=== PATIENT | female | born 1945 | race Caucasian/White ===

== ENCOUNTER 2019-07-26 11:30 | Inpatient (IN) | payer MEDICARE ==
[~2019-07-26] VITALS: Ht 162.6 cm; Wt 58.0 kg
[2019-07-26] MEDS ORDERED: CALCIUM CARBONATE 500 MG (TUMS) TAB.CHEW PO PRN (12:00)
[2019-07-26] MEDS ORDERED: ALPRAZolam 0.25 MG (XANAX) TAB PO PRN (12:00)
[2019-07-26] MEDS ORDERED: guaiFENesin/CODEINE (ROBITUSSIN AC) 10ML UDC PO PRN (12:00)
[2019-07-26] MEDS ORDERED: BISACODYL 10 MG SUPP (DULCOLAX) PR PRN (12:00)
[2019-07-26] MEDS ORDERED: LOPERAMIDE 2 MG (IMODIUM) TABLET PO PRN (12:00)
[2019-07-26] MEDS ORDERED: ONDANSETRON 4 MG (ZOFRAN) ORAL DISSOLVE TAB PO PRN (12:00)
[2019-07-26] MEDS ORDERED: diphenhydrAMINE 25 MG TAB (BENADRYL) PO PRN (12:00)
[2019-07-26] MEDS ORDERED: DOCUSATE SODIUM 100 MG (COLACE) CAP PO PRN (12:00)
[2019-07-26] MEDS ORDERED: FLEET ENEMA ADULT 1 EA BTL PR PRN (12:00)
[2019-07-26] MEDS ORDERED: oxyCODONE ER 10 MG (OxyCONTIN CR) TAB PO ONE (12:00)
[2019-07-26] MEDS ORDERED: LACTULOSE SYRUP 10GM/15ML (ENULOSE) 30ML UDC PO PRN (12:00)
--- NOTE | 2019-07-26 12:50 | NUR ---
LUIS LUEVANO admitted to room 228-1, with an admitting diagnosis of s/p left knee replacement and DVT of the left leg, on 07/26/19 from [facility] via Private vehicle, accompanied by .LUIS LUEVANO introduced to surroundings, call light, bed controls, phone, TV, temperature control, lights, meal times, smoking policy, visitor policy, side rail policy, bathrooms and showers. Patient Rights given to patient in the handbook. LUIS LUEVANO verbalizes understanding that [facility] is not responsible for the loss or damage to any personal effects or valuables that are kept in the patients possession during their hospitalization. The Patient's Care Plans were discussed with the patient as well as Discharge Planning. LUIS LUEVANO verbalizes understanding of Interdisciplinary Patient Education. Patient and/or family were informed about the Rapid Response Team and its purpose.
[2019-07-26 13:31] VITALS: BP 152/78
[2019-07-26] MEDS ORDERED: ATOR20TA66 PO (13:56)
[2019-07-26] MEDS ORDERED: LOSA100T57 PO (13:56)
[2019-07-26] MEDS ORDERED: SENN-145 PO (13:56)
[2019-07-26] MEDS ORDERED: APIX5TAB PO (13:56)
[2019-07-26] MEDS ORDERED: OXC5T PO (13:56)
[2019-07-26] MEDS ORDERED: ASCO-262 PO (13:57)
[2019-07-26] MEDS ORDERED: oxyCODONE ER 10 MG (OxyCONTIN CR) TAB PO NR (14:00)
[2019-07-26] MEDS ORDERED: METO-387 PO (14:12)
[2019-07-26] MEDS: IRON SUCROSE 200 MG/10 ML (VENOFER) VIAL IV SCH (14:12)
--- NOTE | 2019-07-26 14:12 | NUR ---
This RN received report from AMY Gaitan at [facility] that patient received her IV Venofer dose today as well as a pain pill at 1215 before she left [facility] to come to [facility].
--- NOTE | 2019-07-26 14:14 | NUR ---
UPDATED MED REC WITH DISCHARGE ORDERS FROM [facility]. NOTE THE FOLLOWING CHANGES WERE MADE WHEN THE PATIENT DISCHARGED FROM [facility]: START TAKING: ELIQUIS 5MG BID OXYCODONE IR 5MG 2 TABS Q4H PRN SENNA S 2 BID NOTE [facility] HAD DOCUMENTED TO CONTINUE METOPROLOL TARTRATE 50MG DAILY HOWEVER PATIENTS HOME MED IS FOR METOPROLOL SUCCINATE 25MG DAILY, ACCORDING TO [facility] IT WAS LAST FILLED #90 04-19-19. I PUT THE MOST RECENTLY FILLED SUCCINATE 25MG DAILY ON THE MED REC. OTC MED REPORTED VITAMIN C 500MG DAILY ADDITIONALLY [facility] FILLED PERCOCET 10-325MG Q6H PRN #30 07-18-19 - THIS IS NOT ADDRESSED ONT HE DISCHARGE FROM [facility] BUT PATIENT STATES THEY DON'T WANT HER TAKING THE TYLENOL AND PLAIN OXYCODONE WAS ORDERED NEW AT DISCHARGE. I WILL ADD THE PERCOCET BACK TO THE MED REC AT A LATER DATE AND REMOVE THE 3 NEW MEDICATIONS ORDERED AT DISCHARGE FROM [facility] FOR PROPER DISCHARGE TO HOME ORDERS. Addendum: 07/26/19 at 1531 by FRANCINE BHATTI CPhT I REMOVED THE THREE NEW MEDICATIONS ORDERED AT DISCHARGE FROM [facility] AND ADDED THE PERCOCET 10-325MG #30 FILLED 07-18-19 TO THE MED REC AT THIS TIME FOR PROPER DISCHARGE TO HOME ORDERS.
--- NOTE | 2019-07-26 14:25 | ST Cognitive Linguistic Eval ---
Speech Evaluation-General Medical Diagnosis Knee surgery Onset Date: Jul 18, 2019 Therapy Diagnosis Therapy Diagnosis: Cognitive-communication Referral Referring Physician: Dr. Elizabeth Medical History Reviewed History: Yes Social History Home: Single Level Current Living Status: Spouse Speech PLF-Current Status Prior Level of Function Patient lived at home with her and was independent with her daily needs. Subjective Patient was pleasant and cooperative with the cognitive assessment. Language Eval: Auditory Comprehends Simple Yes/No Ques: Functional Indent/Objects Multiple Gates: Functional Ident/Pics in Multiple Gates: Functional Follows 1-Step Commands: Functional Follows Complex Directions: Functional Follows General Conversations: Functional Language Eval: Verbal Language Completes Spontaneous Greeting: Functional Produces Auto, Serial Info: Functional Imitates Simple Words/Phrases: Functional Word Finding: Functional Requests Basic Needs: Functional States Basic Personal Info: Functional Expresses Complex Ideas: Functional Objective Cognitive Domain Attention: WNL Memory: WNL Problem Solving: Functional Executive Functions: WNL Visuospatial Skills: WNL Composite Severity Rating: WNL Clock Drawing Severity Rating: WNL Objective Formal/Standardized Tests [facility] Mental Status ([facility]) Results /, within normal range of function. Oral Motor/Speech Production Within Normal Limits Impression Patient is a pleasant 73 year old female who was admitted to the ARU s/p knee surgery and blood clot. The patient was given the SLUMS at bedside with results obtained of . Patient is within normal range of function for cognition. Patient does not require further ST services at this time. Speech Patient Assess Expression of Ideas/Wants: Expression (4) Understanding Verbal Content: Understands (4) Brief Interview-Mental Status: Yes Repetition of Three Words: Three (3) Temporal Orientation: Year: Correct (3) Temporal Orientation: Month: Accurate within 5 days(2) Temporal Orientation: Day: Correct (1) Recall : Wear to say "Sock": Yes, no cue required (2) Recall : Color: Yes, no cue required (2) Recall : Bed: Yes, no cue required (2) Memory/Recall Ability: Current season, Location of own room, That he or she is in a hsp/hsp unit Speech-Plan Patient/Family Goals Patient/Family Goals: Patient plans on returning to her home with her upon discharge. Treatment Plan Speech Therapy Treatment Plan: Discontinue ST Patient does not require further ST services. Treatment Duration: Jul 26, 2019 Frequency: 1 time per week Estimated Hrs Per Day: .25 hour per day Rehab Potential: Good Barriers to Learning: None identified Pt/Family Agrees to Plan: Yes Safety Risks/Education Teaching Recipient: Patient Teaching Methods: Discussion Response to Teaching: Verbalize Understanding Education Topics Provided: Safety within her room and communication of wants/needs. Time Speech Therapy Time In: 14:00 Speech Therapy Time Out: 14:15 Total Billed Time: 15 Billed Treatment Time 1, RICCINDJOSELYN Figueredo Jul 26, 2019 14:25 POS
--- NOTE | 2019-07-26 14:49 | Physical Therapy Evaluation ---
PT Evaluation-General Medical Diagnosis Admission Date Jul 26, 2019 at 12:50 Medical Diagnosis: left TKR Onset Date: Jul 18, 2019 Therapy Diagnosis Therapy Diagnosis: debility/weakness Precautions Precautions/Isolations: Standard Precautions Weight Bear Status Right Lower Extremity: Right Weight Bearing/Tolerated Left Lower Extremity: Left Weight Bearing/Tolerated Referral Physician: Glenn Reason for Referral: Evaluation/Treatment Medical History Pertinent Medical History: HTN Current History s/p elective left TKR (s/p DVT) Reviewed History: Yes Social History Home: Single Level Current Living Status: Spouse Entry Into Home: Stairs With Railing PT Steps Into Home: 3 Prior Prior Level of Function SCALE: Activities may be completed with or without assistive devices. 8-Geigrmslpg-zdnqjnf completes the activity by him/herself with no assistance from a helper. 5-Set-up or Clean-up Assistance-helper sets up or cleans up; patient completes activity. [place] assists only prior to or following the activity. 4-Supervision or Touching Assistance-helper provides verbal cues and/or touching/steadying and/or contact guard assistance as patient completes activity. Assistance may be provided throughout the activity or intermittently. 3-Partial/Moderate Assistance-helper does LESS THAN HALF the effort. [place] lifts, holds or supports trunk or limbs, but provides less than half the effort. 2-Substantial/Maximal Assistance-helper does MORE THAN HALF the effort. [place] lifts or holds trunk or limbs and provides more than half the effort. 2-Buxnophtt-qmohcn does ALL the effort. Patient does none of the effort to complete the activity. Or, the assistance of 2 or more helpers is required for the patient to complete the activity. If activity was not attempted, code reason: 7-Patient Refused. 9-Not Applicable-not attempted and the patient did not perform the activity before the current illness, exacerbation or injury. 10-Not Attempted due to Environmental Limitations-(lack of equipment, weather restraints, etc.). 88-Not Attempted due to Medical Conditions or Safety Concerns. Bed Mobility: 6 Transfers (B,C,W/C): 6 Gait: 6 Stairs: 6 Indoor Mobility (Ambulation): Independent Stairs: Independent Prior Devices Use: None PT Evaluation-Current Subjective Patient agrees to PT. Pain Numeric Pain Scale: 7 Location: Left Location Body Site: Knee Pain Description: Acute Objective Patient Orientation: Normal For Age Problem Solving: Good ROM/Strength ROM Lower Extremities left knee flexion 83 degrees/extension 4 degrees right knee flexion/extension WFL Strength Lower Extremities left LE 3/5 grossly right LE 5/5 grossly Integumentary/Posture Integumentary left knee incision Bowel Incontinence: No Bladder Incontinence: No Posture WFL Neuromuscular (Tone, Coordination, Reflexes) grossly intact Sensory Vision: Wears Glasses Hearing: Functional Sensation Right Lower Extremit: Intact Sensation Left Lower Extremity: Intact Transfers Roll Left to Right (QC): 5 Sit to Lying (QC): 5 Lying to Sitting/Side of Bed(Q: 5 Sit to Stand (QC): 4 Chair/Odf-xg-Hpvpo Xfer(QC): 4 Car Transfer (QC): 4 Gait Does the Patient Walk?: Yes Mode of Locomotion: Walk Anticipated Mode of Locomotion: Walk Distance: 3=150 ft Walk 10 feet (QC): 4 Walk 50 ft with 2 Turns(QC): 4 Walk 150 ft (QC): 4 Walking 10ft/uneven surface-QC: 4 Distance: 50' x 2/150' x 1 Gait Assistive Device: FWW Comments/Gait Description slow, antalgic, step to gait pattern with 50% WB per patient report Balance Sitting Static: Normal Sitting Dynamic: Normal Standing Static: Normal Standing Dynamic: Normal Picking up an Object (QC): 3 Treatment AAROM left LE 15 reps each SLR, AP, QS, HS Assessment/Needs 73 y.o. female, will benefit from skilled PT to address functional strength and mobility to improve current LOF to safely return to home at maximum LOF. Rehab Potential: Good PT Humanities Professor Goals Snf Goals PT Humanities Professor Goals Time Frame: Aug 10, 2019 Sit to Lying (QC): 6 Lying-Sitting on Side/Bed(QC): 6 Sit to Stand (QC): 6 Roll Left to Right (QC): 6 Chair/Uuf-pb-Qrggg Xfer(QC): 6 Car Transfer (QC): 6 Does the Patient Walk: Yes Distance: 200' Walk 10 feet (QC): 6 Walk 10ft-Uneven Surface(QC): 6 Walk 50ft with 2 Turns (QC): 6 Walk 150 ft (QC): 6 Gait Assistive Device: FWW # of Steps: 12 1 Step (curb) (QC): 6 4 Steps (QC): 6 12 Steps (QC): 6 Picking up an Object (QC): 6 PT Plan Problem List Problem List: Activity Tolerance, Balance, Gait, Transfer, Bed Mobility, ROM Treatment/Plan Treatment Plan: Continue Plan of Care Treatment Plan: Bed Mobility, Concurrent Therapy, Education, Functional Activity Abdoul, Functional Strength, Group Therapy, Gait, Safety, Therapeutic Exercise, Transfers Treatment Duration: Aug 10, 2019 Frequency: At least 5 of 7 days/Wk (IRF) Estimated Hrs Per Day: 1.5 hours per day Patient and/or Family Agrees t: Yes Time/GCodes Time In: 1255 Time Out: 1355 Total Billed Treatment Time: 60 Total Billed Treatment 1 visit EVModC 25 min EX 20 min GT 15 min ALEXIA BOJORQUEZ PT Jul 26, 2019 14:49 POS
--- NOTE | 2019-07-26 15:25 | Occupational Therapy Eval ---
OT Evaluation-General/PLF Medical Diagnosis Admission Date Jul 26, 2019 at 12:50 Medical Diagnosis: left TKR Onset Date: Jul 18, 2019 Therapy Diagnosis Therapy Diagnosis: decreased self care skills Precautions Precautions/Isolations: Standard Precautions Referral Physician: Glenn Medical History Pertinent Medical History: HTN, OA Additional Medical History hyperlipidemia Current History Pt s/p left TKA. DVT left LE. Reviewed History: Yes Social History Home: Single Level Current Living Status: Spouse Entry Into Home: Stairs With Railing Steps Into Home: 3 ADL-Prior Level of Function SCALE: Activities may be completed with or without assistive devices. 2-Ihcgdlbvjr-yoousok completes the activity by him/herself with no assistance from a helper. 5-Set-up or Clean-up Assistance-helper sets up or cleans up; patient completes activity. [place] assists only prior to or following the activity. 4-Supervision or Touching Assistance-helper provides verbal cues and/or touching/steadying and/or contact guard assistance as patient completes activity. Assistance may be provided throughout the activity or intermittently. 3-Partial/Moderate Assistance-helper does LESS THAN HALF the effort. [place] lifts, holds or supports trunk or limbs, but provides less than half the effort. 2-Substantial/Maximal Assistance-helper does MORE THAN HALF the effort. [place] lifts or holds trunk or limbs and provides more than half the effort. 5-Yyayxwyqu-tjrtvr does ALL the effort. Patient does none of the effort to complete the activity. Or, the assistance of 2 or more helpers is required for the patient to complete the activity. If activity was not attempted, code reason: 7-Patient Refused. 9-Not Applicable-not attempted and the patient did not perform the activity before the current illness, exacerbation or injury. 10-Not Attempted due to Environmental Limitations-(lack of equipment, weather restraints, etc.). 88-Not Attempted due to Medical Conditions or Safety Concerns. ADL PLOF Comments Pt reports being independent prior to surgery. Self Care: Independent Functional Cognition: Independent DME/Equipment: Bath Chair, Tub/Shower, Toilet/[address] Self: Yes OT Current Status Subjective Pt agreeable to therapy. Reports mild pain in left LE, but states "it's better than it was." Does not rate pain. Mental Status/Objective Patient Orientation: Person, Place, Situation Current Glasses/Contacts: Yes Hearing Aids: No Dentures/Partials: No Hand Dominance: Right Upper Extremity ROM WFL Upper Extremity Coordination Intact Upper Extremity Strength Grossly 4/5 ADL-Treatment ADL-Current Pt supine to sit with SBA. Don footwear on right with SBA, assist for left. Sit to stand with supervision. Gait to restroom with FWW. Pt has decreased weight bearing on left LE. Transfer to [facility] over toilet with CGA. Pt able to complete toileting hygiene with SBA. CGA for balance during clothing management. Pt transferred to shower with CGA for balance, cues for safety. Seated bathing completed using hand held shower. Min assist overall for bathing. Don pullover shirt with set up. Pt able to thread bilateral LE into underwear and pants. CGA for balance during pant hike. Assist to don right [place] hose. Pt brushed hair with set up, but declined to complete oral care at this time. Pt requests to return to bed. Sit to supine with SBA. Pt resting in bed with needs met after session. Eating (QC): 6 (per pt report) Oral Hygiene (QC): 7 (pt declined to complete at this time) Shower/Bathe Self (QC): 4 Upper Body Dressing (QC): 5 Lower Body Dressing (QC): 3 On/Off Footwear (QC): 3 Toileting Hygiene (QC): 4 Toilet Transfer (QC): 4 Education OT Patient Education: Rehab process Teaching Recipient: Patient Teaching Methods: Discussion Response to Teaching: Verbalize Understanding OT Short Term Goals Short Term Goals 1=Demonstrate adherence to instructed precautions during ADL tasks. 2=Patient will verbalize/demonstrate understanding of assistive devices/modifications for ADL. 3=Patient will improve strength/tolerance for activity to enable patient to perform ADL's. OT Mcfp Goals Lean Facilitator Goals Time Frame: Aug 09, 2019 Eating (QC): 6 Oral Hygiene (QC): 6 Shower/Bathe Self (QC): 6 Upper Body Dressing (QC): 6 Lower Body Dressing (QC): 6 On/Off Footwear (QC): 6 Toileting Hygiene (QC): 6 Toilet/Commode Transfer (QC): 6 Additional Goals: 1-Demonstrate ADL Tasks, 2-Verbalize Understanding, 3- ImproveStrength/Abdoul 1=Demonstrate adherence to instructed precautions during ADL tasks. 2=Patient will verbalize/demonstrate understanding of assistive devices/modifications for ADL. 3=Patient will improve strength/tolerance for activity to enable patient to perform ADL's. Goals established to promote increased functional independence and allow safe discharge. OT Education/Plan Problem List/Assessment Assessment: Decreased Activ Tolerance, Decreased UE Strength, Dependent Transfers, Impaired I ADL's, Impaired Self-Care Skills Pt demonstrates decreased mobility, ADL functioning, strength, and activity tolerance. Pt to benefit from skilled OT intervention for ADL training, transfers, strengthening, and safety education to increase level of independence and allow safe discharge home. Discharge Recommendations Plan/Recommendations: Continue POC Treatment Plan/Plan of Care Treatment,Training & Education: Yes Patient would benefit from OT for education, treatment and training to promote independence in ADL's, mobility, safety and/or upper extremity function for ADL's. Plan of Care: ADL Retraining, Functional Mobility, Group Exercise/Act as Ind, UE Funct Exercise/Act Treatment Duration: Aug 09, 2019 Frequency: Modified Program (IRF) (25/03) Estimated Hrs Per Day: 1.5 hours per day Rehab Potential: Good Time/GCodes Start Time: 14:15 Stop Time: 15:15 Total Time Billed (hr/min): 60 Billed Treatment Time 1 visit, EVM(15minutes), ADLx3(45minutes) SID CACERES OT Jul 26, 2019 15:25 POS
[2019-07-26] MEDS ORDERED: OXYC1TAB12 PO (15:30)
[2019-07-26 16:00] VITALS: BP 114/71
--- NOTE | 2019-07-26 16:37 | Progress Note ---
Progress Note CC: Slow recovery and failure DC home from Left TKA surgery by Dr. Pérez 8 days ago POD # 8 HPI: This is a 73yoWF who I saw in consultation at [facility] following and uncomplicated left knee replacement and she was a pt of Dr. Teresa and she had a history of HTN and HLP, otherwise healthy that had a long hospital course following the knee replacement. She did finally have resolution of the post op constipation narcotic bowel. Her labs remained stable although slightly anemic at 9.5 Hgb who presented in my office with left leg pain after Dr. Pérez had staff call me due to continued left lower extremity pain, ultrasound was obtained showing venous thromboembolism at the intersection about to turn into the DVT so she was given a dose of Lovenox at [facility] and transported over to my office and I updated her on the plan and to place in observation and she chose to go to [facility] and did mention inpatient rehab of which originally she was not interested in but considering her overall failure since she was DC home she will be admitted to inpatient rehab for structured PT slower pace of 157 and be able to get back on track to completely recover from this knee replacement. She appears to have some difficulty coping and it appears that she does have some chronic depression that is not currently being treated and her bowels are moving after laxatives given after she hadn't had a BM since she left the hospital and wasn't eating or drinking so I did give IV fluids for hydration. I did give IV iron infusion because her Iron level was 30, Hgb at 9. The incision looks good, no evidence of erythema or drainage. KINJAL SWEENEY DO Jul 26, 2019 16:37 POS
[2019-07-26] MEDS: IBUPROFEN TABLET 200 MG TAB PO SCH (18:03)
[2019-07-26] MEDS ORDERED: DOCUSATE SODIUM 100 MG (COLACE) CAP PO SCH (21:00)
[2019-07-26] MEDS ORDERED: SENNA W/DOCUSATE (SENOKOT S) TABLET PO SCH (21:00)
[2019-07-26] MEDS: APIXABAN 5 MG (ELIQUIS) TABLET PO SCH (21:01)
[2019-07-26] MEDS: oxyCODONE ER 10 MG (OxyCONTIN CR) TAB PO SCH (21:01)
[2019-07-26] MEDS: POLYETHYLENE GLYCOL 17 GM (MIRALAX) PACK PO SCH (21:05)
[2019-07-26] MEDS: SENNA W/DOCUSATE (SENOKOT S) TABLET PO SCH (21:05)
[2019-07-27 05:34] VITALS: BP 154/84
[2019-07-27] MEDS: IBUPROFEN TABLET 200 MG TAB PO SCH ×3 (06:32→17:03)
[2019-07-27] MEDS: ASCORBIC ACID (VIT C) 500 MG TABLET PO SCH (06:32)
[2019-07-27 06:38] LABS: BASOPHILS # (AUTO) 0.1 10^3/uL (0.0-0.1); BASOPHILS % (AUTO) 1 % (0-10); EOSINOPHILS # (AUTO) 0.4 10^3/uL (0.0-0.3); EOSINOPHILS % (AUTO) 5 % (0-10); HEMATOCRIT 31 % (35-52); HEMOGLOBIN 9.6 G/DL (11.5-16.0); LYMPHOCYTES # (AUTO) 1.7 X 10^3 (1.0-4.0); LYMPHOCYTES % (AUTO) 22 % (12-44); MEAN CORPUSCULAR HEMOGLOBIN 30 PG (25-34); MEAN CORPUSCULAR HGB CONC 32 G/DL (32-36); MEAN CORPUSCULAR VOLUME 95 FL (80-99); MEAN PLATELET VOLUME 9.8 FL (7.4-10.4); MONOCYTES # (AUTO) 0.7 X 10^3 (0.0-1.0); MONOCYTES % (AUTO) 10 % (0-12); NEUTROPHILS # (AUTO) 4.8 X 10^3 (1.8-7.8); NEUTROPHILS % (AUTO) 62 % (42-75); PLATELET COUNT 514 10^3/uL (130-400); RED CELL DISTRIBUTION WIDTH 12.1 % (10.0-14.5); WHITE BLOOD COUNT 7.7 10^3/uL (4.3-11.0)
[2019-07-27 07:04] LABS: ALANINE AMINOTRANSFERASE 54 U/L (0-55); ALBUMIN 3.5 GM/DL (3.2-4.5); ALKALINE PHOSPHATASE 113 U/L (40-136); BILIRUBIN,TOTAL 0.7 MG/DL (0.1-1.0); BUN/CREATININE RATIO 18; CALCIUM 9.6 MG/DL (8.5-10.1); CARBON DIOXIDE 25 MMOL/L (21-32); CHLORIDE 103 MMOL/L (98-107); CREATININE SERUM 0.74 MG/DL (0.60-1.30); GFR ESTIMATED > 60; GLUCOSE 90 MG/DL (70-105); POTASSIUM 4.1 MMOL/L (3.6-5.0); SODIUM 139 MMOL/L (135-145); TOTAL PROTEIN 6.8 GM/DL (6.4-8.2)
[2019-07-27] MEDS: APIXABAN 5 MG (ELIQUIS) TABLET PO SCH ×2 (08:03→21:10)
[2019-07-27] MEDS: LOSARTAN 100 MG (COZAAR) TABLET PO SCH (08:03)
[2019-07-27] MEDS: oxyCODONE ER 10 MG (OxyCONTIN CR) TAB PO SCH ×2 (08:03→21:10)
[2019-07-27] MEDS: SENNA W/DOCUSATE (SENOKOT S) TABLET PO SCH ×2 (08:04→21:12)
[2019-07-27 08:05] VITALS: BP 120/76
[2019-07-27] MEDS: POLYETHYLENE GLYCOL 17 GM (MIRALAX) PACK PO SCH ×2 (08:05→21:05)
--- NOTE | 2019-07-27 10:08 | Occupational Ther Daily Note ---
OT Current Status-Daily Note Subjective Pt seen in bed, agreeable to OT tx session stating she requires bathroom. Pt states "some" pain in L knee, but increases during stance/ WB. Mental Status/Objective Patient Orientation: Normal For Age ADL-Treatment Therapy Code Descriptions/Definitions Functional [facility] Measure: 0=Not Assessed/NA 4=Minimal Assistance 1=Total Assistance 5=Supervision or Setup 2=Maximal Assistance 6=Modified [facility] 3=Moderate Assistance 7=Complete IndependenceSCALE: Activities may be completed with or without assistive devices. 7-Hrpfxqsgij-dfsqlzm completes the activity by him/herself with no assistance from a helper. 5-Set-up or Clean-up Assistance-helper sets up or cleans up; patient completes activity. [place] assists only prior to or following the activity. 4-Supervision or Touching Assistance-helper provides verbal cues and/or touching/steadying and/or contact guard assistance as patient completes activity. Assistance may be provided throughout the activity or intermittently. 3-Partial/Moderate Assistance-helper does LESS THAN HALF the effort. [place] lifts, holds or supports trunk or limbs, but provides less than half the effort. 2-Substantial/Maximal Assistance-helper does MORE THAN HALF the effort. [place] lifts or holds trunk or limbs and provides more than half the effort. 2-Vibijfvxw-mxxyxj does ALL the effort. Patient does none of the effort to complete the activity. Or, the assistance of 2 or more helpers is required for the patient to complete the activity. If activity was not attempted, code reason: 7-Patient Refused. 9-Not Applicable-not attempted and the patient did not perform the activity before the current illness, exacerbation or injury. 10-Not Attempted due to Environmental Limitations-(lack of equipment, weather restraints, etc.). 88-Not Attempted due to Medical Conditions or Safety Concerns. Oral Hygiene (QC): 4 (CGA in stance. Pt leans on counter for support. ) Toileting Hygiene (QC): 4 (Min A due to pt's balance fair- requires steadying assist) Toilet Transfer (QC): 4 (CGA assist due to balance ) on/off footwear 4- pt completes without AE with good dynamic sitting balance edg e of chair. Pt's L LE pitting edema near ankle, requires shoe horn with min cues for donning. Other Treatment Pt completes bed mob with SUP. Sit to stand to FWW with CGA. Pt completes ADLs in room. Pt's family present mid-end of session. Pt completes sit to stand to FWW with CGA, completes functional mobility with CGA, kitchen tasks with CGA and cues for safe stance while gathering items from fridge/ microwave. Pt transfers to chair in ARU [facility], completes sock/ shoe donning with min cues for shoe horn use; pt left in [facility] with family members with PT to follow, all needs met. Education OT Patient Education: Correct positioning, Modified ADL techniques, Purpose of tx/functional activities, Safety issues, Use of adapted equipment Teaching Recipient: Patient Teaching Methods: Demonstration, Discussion Response to Teaching: Verbalize Understanding, Return Demonstration OT Short Term Goals Short Term Goals 1=Demonstrate adherence to instructed precautions during ADL tasks. 2=Patient will verbalize/demonstrate understanding of assistive devices/modifications for ADL. 3=Patient will improve strength/tolerance for activity to enable patient to perform ADL's. OT Credit Compliance Officer Goals [facility] Goals Time Frame: Aug 09, 2019 Eating (QC): 6 (met) Oral Hygiene (QC): 6 Shower/Bathe Self (QC): 6 Upper Body Dressing (QC): 6 Lower Body Dressing (QC): 6 On/Off Footwear (QC): 6 Toileting Hygiene (QC): 6 Toilet/Commode Transfer (QC): 6 Additional Goals: 1-Demonstrate ADL Tasks, 2-Verbalize Understanding, 3-ImproveStrength/Abdoul 1=Demonstrate adherence to instructed precautions during ADL tasks. 2=Patient will verbalize/demonstrate understanding of assistive devices/modifications for ADL. 3=Patient will improve strength/tolerance for activity to enable patient to per form ADL's. OT Education/Plan Problem List/Assessment Assessment: Decreased Activ Tolerance, Decreased UE Strength, Impaired Funct Balance, Impaired I ADL's, Impaired Self-Care Skills Pt demonstrates decreased mobility, ADL functioning, strength, and activity tolerance. Pt to benefit from skilled OT intervention for ADL training, transf ers, strengthening, and safety education to increase level of independence and allow safe discharge home. Discharge Recommendations Plan/Recommendations: Continue POC Treatment Plan/Plan of Care Treatment,Training & Education: Yes Patient would benefit from OT for education, treatment and training to promote independence in ADL's, mobility, safety and/or upper extremity function for ADL's. Plan of Care: ADL Retraining, Functional Mobility, Group Exercise/Act as Ind, UE Funct Exercise/Act Treatment Duration: Aug 09, 2019 Frequency: Modified Program (IRF) (25/03) Estimated Hrs Per Day: 1.5 hours per day Rehab Potential: Good Time/GCodes Start Time: 09:10 Stop Time: 09:40 Total Time Billed (hr/min): 30 Billed Treatment Time 1, ADL (20), FA (10)= 30 VIOLETA MONTIEL OTR Jul 27, 2019 10:08 POS
--- NOTE | 2019-07-27 11:49 | Physical Therapy Daily Note ---
PT Daily Note-Current Subjective Patient reports she is feeling much better today and is putting 75% of her weight through her left LE. Agrees to PT. Pain Numeric Pain Scale: 7 Location: Left Location Body Site: Knee Pain Description: Acute Mental Status Patient Orientation: Normal For Age Transfers SCALE: Activities may be completed with or without assistive devices. 5-Ovmrubfyno-ntteynz completes the activity by him/herself with no assistance from a helper. 5-Set-up or Clean-up Assistance-helper sets up or cleans up; patient completes activity. [place] assists only prior to or following the activity. 4-Supervision or Touching Assistance-helper provides verbal cues and/or touching/steadying and/or contact guard assistance as patient completes activity. Assistance may be provided throughout the activity or intermittently. 3-Partial/Moderate Assistance-helper does LESS THAN HALF the effort. [place] lifts, holds or supports trunk or limbs, but provides less than half the effort. 2-Substantial/Maximal Assistance-helper does MORE THAN HALF the effort. [place] lifts or holds trunk or limbs and provides more than half the effort. 2-Ztpjmdods-upbmro does ALL the effort. Patient does none of the effort to complete the activity. Or, the assistance of 2 or more helpers is required for the patient to complete the activity. If activity was not attempted, code reason: 7-Patient Refused. 9-Not Applicable-not attempted and the patient did not perform the activity before the current illness, exacerbation or injury. 10-Not Attempted due to Environmental Limitations-(lack of equipment, weather restraints, etc.). 88-Not Attempted due to Medical Conditions or Safety Concerns. Roll Left to Right (QC): 5 Sit to Lying (QC): 5 Sit to Stand (QC): 5 Chair/Kze-ev-Phavj Xfer(QC): 5 Bed to/from Chair: 5 Weight Bearing Right Lower Extremity: Right Weight Bearing/Tolerated Left Lower Extremity: Left Weight Bearing/Tolerated Gait Training Does the Patient Walk?: Yes Distance: 200' x 2 Walk 10 feet (QC): 5 Walk 50 ft with 2 Turns(QC): 5 Walk 150 ft (QC): 5 Gait Assistive Device: FWW slow, antalgic, step to gait sequence/education and demonstration of reciprocal pattern gait sequence initiated with patient attempting to demonstrate/patient gait sequence is improving slowly Exercises Supine Ex: Ankle pumps, Quad Set, Heel Slides, Straight leg raise Supine Reps: 12 Seated Therapy Exercises: Ankle pumps, Long arc quads Seated Reps: 15 NuStep Minutes: 15 NuStep Workload: 4 (to increase ROM left LE) Assessment Patient is improving with treatment plan and is highly motivated with progress. PT to continue to increase activity as tolerated by patient. Patient does appear to continue to self limit due to pain/apprehension. PT Custodial Goals Risk Control Officer Goals PT Custodial Goals Time Frame: Aug 10, 2019 Sit to Lying (QC): 6 Lying-Sitting on Side/Bed(QC): 6 Sit to Stand (QC): 6 Roll Left to Right (QC): 6 Chair/Sap-ug-Iuwgw Xfer(QC): 6 Car Transfer (QC): 6 Does the Patient Walk: Yes Distance: 200' Walk 10 feet (QC): 6 Walk 10ft-Uneven Surface(QC): 6 Walk 50ft with 2 Turns (QC): 6 Walk 150 ft (QC): 6 Gait Assistive Device: FWW # of Steps: 12 1 Step (curb) (QC): 6 4 Steps (QC): 6 12 Steps (QC): 6 Picking up an Object (QC): 6 PT Plan Treatment/Plan Treatment Plan: Continue Plan of Care Treatment Plan: Bed Mobility, Concurrent Therapy, Education, Functional Activity Abdoul, Functional Strength, Group Therapy, Gait, Safety, Therapeutic Exercise, Transfers Treatment Duration: Aug 10, 2019 Frequency: At least 5 of 7 days/Wk (IRF) Estimated Hrs Per Day: 1.5 hours per day Patient and/or Family Agrees t: Yes Time/GCodes Time In: 940 Time Out: 1010 Total Billed Treatment Time: 30 Total Billed Treatment 1 visit EX 20 min GT 10 min ALEXIA BOJORQUEZ PT Jul 27, 2019 11:49 POS
--- NOTE | 2019-07-27 12:02 | PM&R Post Admission Assessment ---
PM&R HP Date of Visit: Jul 27, 2019 Time of Visit: 10:45 History of Present Illness see bridge note Past Ftpcbjh-Xapuqv-Hjiiaq Hx Past Med/Social Hx: Reviewed Nursing Past Med/Soc Hx, Reviewed and Corrections made Patient Social History Marrital Status: Employed/Student: retired Alcohol Use: Occasionally Uses Alcohol Beverage of Choice: Beer Smoking Status: Never a Smoker Recent Foreign Travel: No Contact w/other who traveled: No Recent Hopitalizations: Yes ([facility] for L total knee and DVT) Recent Infectious Disease Expo: No Seasonal Allergies Seasonal Allergies: No Past Medical History Currently Using CPAP: No Currently Using BIPAP: No Cardiac: High Cholesterol, Hypertension : No Sexually Transmitted Disease: No HIV/AIDS: No Gastrointestinal: Chronic Constipation Musculoskeletal: Arthritis History of Blood Disorders: Yes (slight post op enemia-on venofer Q48H currently.) Adverse Reaction to Blood Patricio: No Family History FH: breast cancer in first degree relative 19 MOTHER FH: pancreatic cancer 19 FATHER Prior Level of Function Bed Mobility: 6 Transfers: 6 Gait: 6 Stairs: 6 Indoor Mobility (Ambulation): Independent Stairs: Independent Prior Devices Use: None Self Care: Independent Functional Cognition: Independent Drive Self: Yes Current Level of Fuctioning Roll Left to Right: 5 Sit to Lyin Lying to Sitting/Side of Bed: 5 Sit to Stand: 5 Chair/Kzu-qw-Jpcex Xfer: 5 Car Transfer: 4 Does the Patient Walk: Yes Mode of Locomotion: Walk Anticipated Mode of Locomotion: Walk Distance: 3=150 ft Walk 10 feet: 5 Walk 50 ft with 2 Turns: 5 Walk 150 ft: 5 Walking 10ft on uneven surface: 4 Gait Assistive Device: FWW Picking up an Object: 3 Eatin (per pt report) Oral Hygiene: 4 (CGA in stance. Pt leans on counter for support. ) Shower/Bathe Self: 4 Upper Body Dressin Lower Body Dressin On/Off Footwear: 3 Toileting Hygiene: 4 (Min A due to pt's balance fair- requires steadying assist) Toilet Transfer: 4 (CGA assist due to balance ) PM&R Allergy/Meds/Data Review Allergies Coded Allergies: No Known Drug Allergies (Unverified , 12/16/14) Home Medications Scheduled Ascorbate Calcium (Vitamin C), 500 MG PO DAILY, (Reported) Atorvastatin Calcium (Atorvastatin Calcium), 20 MG PO HS, (Reported) Losartan Potassium (Losartan Potassium), 100 MG PO DAILY, (Reported) Metoprolol Succinate (Metoprolol Succinate), 25 MG PO DAILY, (Reported) Scheduled PRN Oxycodone HCl/Acetaminophen (Percocet 10-325 mg Tablet), 1 TAB PO Q6H PRN for PAIN-MODERATE (5-7), (Reported) Current Medications Current Medications reviewed Laboratory Data Laboratory Tests 07/27/19 05:45: White Blood Count 7.7, Red Blood Count 3.20L, Hemoglobin 9.6L, Hematocrit 31L, Mean Corpuscular Volume 95, Mean Corpuscular Hemoglobin 30, Mean Corpuscular Hemoglobin Concent 32, Red Cell Distribution Width 12.1, Platelet Count 514H, Mean Platelet Volume 9.8, Neutrophils (%) (Auto) 62, Lymphocytes (%) (Auto) 22, Monocytes (%) (Auto) 10, Eosinophils (%) (Auto) 5, Basophils (%) (Auto) 1, Neutrophils # (Auto) 4.8, Lymphocytes # (Auto) 1.7, Monocytes # (Auto) 0.7, Eosinophils # (Auto) 0.4H, Basophils # (Auto) 0.1, Sodium Level 139, Potassium Level 4.1, Chloride Level 103, Carbon Dioxide Level 25, Anion Gap 11, Blood Urea Nitrogen 13, Creatinine 0.74, Estimat Glomerular Filtration Rate > 60, BUN/Crea tinine Ratio 18, Glucose Level 90, Calcium Level 9.6, Corrected Calcium 10.0, Total Bilirubin 0.7, Aspartate Amino Transf (AST/SGOT) 28, Alanine Aminotransferase (ALT/SGPT) 54, Alkaline Phosphatase 113, Total Protein 6.8, Albumin 3.5 Review of Systems Constitutional: see HPI, malaise, weakness EENTM: no symptoms reported Respiratory: no symptoms reported Cardiovascular: no symptoms reported Gastrointestinal: constipation Musculoskeletal: back pain, joint pain Psychiatric/Neurological: Depressed, Emotional Problems All Other Systems Reviewed Negative Unless Noted: Yes Physical Exam Physical Exam Vital Signs Vital Signs - First Documented 07/26/19 07/26/19 13:00 13:31 Temp 36.6 Pulse 111 Resp 18 B/P (MAP) 152/78 Pulse Ox 95 O2 Delivery Room Air Capillary Refill : Height, Weight, BMI Height: '" Weight: lbs. oz. kg; 22.88 BMI Method: General Appearance: No Apparent Distress, WD/WN, Anxious Eyes: Bilateral Eye Normal Inspection, Bilateral Eye PERRL HEENT: PERRL/EOMI, TMs Normal, Normal ENT Inspection, Pharynx Normal Neck: Full Range of Motion, Normal Inspection, Non Tender, Supple, Carotid Bruit Respiratory: Chest Non Tender, Lungs Clear, Normal Breath Sounds, No Accessory Muscle Use, No Respiratory Distress Cardiovascular: Regular Rate, Rhythm, No Edema, No Gallop, No JVD, No Murmur, Normal Peripheral Pulses Gastrointestinal: Normal Bowel Sounds, No Organomegaly, No Pulsatile Mass, Non Tender, Soft Back: Normal Inspection, No CVA Tenderness, No Vertebral Tenderness Extremity: Normal Capillary Refill, Normal Inspection, Normal Range of Motion (except left leg due to edema and recent knee replacement), Non Tender, No Calf Tenderness, No Pedal Edema Neurologic/Psychiatric: Alert, Oriented x3, No Motor/Sensory Deficits, Normal Mood/Affect Skin: Normal Color, Warm/Dry Lymphatic: No Adenopathy PM&R Medical Assessment & Plan REHAB/MEDICAL ASSESSMENT AND PLAN: REHAB IMPAIRMENT GROUP: Left knee replacement with acute left DVT complicating recovery ETIOLOGIC DIAGNOSIS: Left knee replacement now with DVT The comorbidities that impact the patients function and/or functional outcome by: [ ] REHAB PLAN: The patient is being admitted to our comprehensive inpatient rehabilitation facility and can tolerate the intensity of service consisting of at least: 180 minutes of therapy a day, 5 out of 7 days a week Rehab treatment will consist of: PT OT will focus on ambulation and increasing ROM Left knee and regaining confidence and ADL independence The patient/family has a good understanding of our discharge process and will benefit from an interdisciplinary inpatient rehabilitation program. The patient has potential to make improvement and is in need of at least two of the following multidisciplinary therapies including but not limited to physical, occupational, speech, and prosthetics and orthotics. Additionally the patient will need services from respiratory, nutritional services, wound care, psychology, etc. (Customize this to each patient). Given the patients complex condition and risk of further medical complications, rehabilitation services cannot be safely or effectively provided at a lower level of care such as a jail facility. BARRIERS TO DISCHARGE: Ability to ambulate and regain left leg function ESTIMATED LOS: 7 days DISPOSITION: Home with HH RELEVANT CHANGES SINCE PREADMISSION SCREENING: I have compared the patients medical and functional status at the time of the preadmission screening and there are: no changes PROGNOSIS: GOOD REHABILITATION GOALS: 1. PT OT will increase ambulation and regain independence after failing home All the above goals were reviewed with the patient and he/she is in agreement. By signing this document, I acknowledge that I have personally performed a full physical examination on this patient within 24 hours of admission to this inpatient rehabilitation facility and have determined the patient to be able to tolerate the above course of treatment at an intensive level for a reasonable period of time. I will be completing a detailed individualized Plan of Care for this patient by day #4 of the patients stay based upon the Preadmission Screen, the Post-Admission Evaluation, and the therapy evaluations. Admission Dx/Comorbidities: (1) Left leg DVT ICD Codes: I82.402 - Acute embolism and thrombosis of unspecified deep veins of left lower extremity (2) Hypertension ICD Codes: I10 - Essential (primary) hypertension (3) Postoperative anemia due to acute blood loss ICD Codes: D62 - Acute posthemorrhagic anemia (4) Iron deficiency ICD Codes: E61.1 - Iron deficiency (5) Hyperlipemia ICD Codes: E78.5 - Hyperlipidemia, unspecified (6) Status post left knee replacement ICD Codes: Z96.652 - Presence of left artificial knee joint KINJAL SWEENEY DO Jul 27, 2019 12:02 POS
--- NOTE | 2019-07-27 12:11 | Individualized Plan of Care ---
Individualized Plan of Care Rehab Nursing IPOC Order Admission Date Jul 26, 2019 at 12:50 Current Orders Orders Admission Order(Inpt,Obs,Sdc) (07/26/19 11:46) Vital Signs: Per Unit Policy ( 08,16,00 (07/26/19 11:46) Loader Technician-Inpt Rehab Con (07/26/19 11:46) Rehab Nursing Orders-Ipoc (07/26/19 11:46) Physical Therapy Rehab Orders (07/26/19 11:46) Occupational Therapy Rehab Ord (07/26/19 11:46) Speech Therapy Rehab Orders (07/26/19 11:46) Cbc With Automated Diff (07/27/19 06:00) Comprehensive Metabolic Panel (07/27/19 06:00) General/Regular (07/26/19 Dinner) Intake & Output 06,14,22 (07/26/19 11:46) Precautions (Aru) (07/26/19 11:46) Weekly Weight WEEK (07/26/19 11:46) Rehab-Intensity Of Therapy (07/26/19 11:46) Initiate Admission Nursing Pro .admission (07/26/19 11:46) Alprazolam Tablet (Xanax Tablet) (07/26/19 12:00) Calcium Carbonate Chew Tablet (Antacid C (07/26/19 12:00) Diphenhydramine Tablet (Benadryl Tablet) (07/26/19 12:00) Docusate Sodium Capsule (Colace Capsule) (07/26/19 21:00) Docusate Sodium Capsule (Colace Capsule) (07/26/19 12:00) Bisacodyl Suppository (Dulcolax Supposit (07/26/19 12:00) Lactulose Oral Solution (Enulose Oral So (07/26/19 12:00) Na Phos/Na Biphos Enema (Fleet Enema Buddy (07/26/19 12:00) Guaifenesin/Codeine Syrup (Robitussin Ac (07/26/19 12:00) Ibuprofen Tablet (Motrin Tablet) (07/26/19 17:00) Loperamide Tablet (Imodium Tablet) (07/26/19 12:00) Melatonin Tablet (Melatonin Tablet) (07/26/19 12:00) Polyethylene Glycol Powder Pkt (Miralax (07/26/19 21:00) Ondansetron Oral Dissolve Tab (Zofran (07/26/19 12:00) Senna S Tablet (Senokot S Tablet) (07/26/19 21:00) Apixaban Tablet (Eliquis Tablet) (07/26/19 21:00) Oxycodone Extended Release Tab (Oxyconti (07/26/19 12:00) Oxycodone Extended Release Tab (Oxyconti (07/26/19 21:00) Oxycodone Immediate Rel Tablet (Oxyir Ta (07/26/19 12:00) Code/Resuscitation (07/26/19 11:46) Transfer - Bed/Room/Location (07/26/19 13:22) Oxycodone Extended Release Tab (Oxyconti (07/26/19 14:00) Iron Sucrose Injection (Venofer Injectio (07/26/19 15:00) Heart Healthy (07/26/19 Dinner) Nursing Communication (Order) (07/26/19 14:25) Patient Visit (07/26/19 ) Pt Eval Moderate Complexity (07/26/19 ) Exercise Therap, Ea 15 Min (07/26/19 ) Gait Training, Ea 15 Min (07/26/19 ) Ambulate 08,12,20 (07/26/19 14:48) Sequential Compression Device Q4H (07/26/19 14:48) Dvt/Vte Risk - Notifiy Physici Q4H (07/26/19 14:48) Losartan Tablet (Cozaar Tablet) (07/27/19 09:00) Metoprolol Succinate (Xl) Tab (Toprol Xl (07/27/19 09:00) Ascorbic Acid Tablet (Vitamin C Tablet) (07/27/19 07:00) Senna S Tablet (Senokot S Tablet) (07/26/19 21:00) Patient Visit (07/26/19 ) Speech Sound Lang Comp (07/26/19 ) Patient Visit (07/27/19 ) Exercise Therap, Ea 15 Min (07/27/19 ) Gait Training, Ea 15 Min (07/27/19 ) Rehab Nursing Orders: Ongoing Assess. of Function Status, Bowel Management, Disease Management & Educaiton, DVT Prophylaxis, Fall Prevention, Fluid/Electrolyte/Nutrition Mgmt, Infection Prevention, Medication Management & Education, Management of Risks & Complications, Management of Skin Intergrity, Nutrition Management, Pain Management, Patient/Family Support, Safety Management Intensity of Therapy to be met Patient to be seen: Min.3h per day/5 of 7d PT IPOC Problem List: Activity Tolerance, Balance, Gait, Transfer, Bed Mobility, ROM Treatment Plan: Continue Plan of Care Bed Mobility, Concurrent Therapy, Education, Functional Activity Abdoul, Functional Strength, Group Therapy, Gait, Safety, Therapeutic Exercise, Transfers Treatment Duration: Aug 10, 2019 Frequency: At least 5 of 7 days/Wk (IRF) Estimated Hrs Per Day: 1.5 hours per day OT IPOC Problems: Decreased Activ Tolerance, Decreased UE Strength, Impaired Funct Balance, Impaired I ADL's, Impaired Self-Care Skills OT Treatment, Training and Edu: Yes OT Problems Pt demonstrates decreased mobility, ADL functioning, strength, and activity tolerance. Pt to benefit from skilled OT intervention for ADL training, transfers, strengthening, and safety education to increase level of independence and allow safe discharge home. Plan of Care: ADL Retraining, Functional Mobility, Group Exercise/Act as Ind, UE Funct Exercise/Act Treatment Duration: Aug 09, 2019 Frequency: Modified Program (IRF) (25/03) Estimated Hrs Per Day: 1.[address] IPOC Speech Therapy Treatment Plan: Discontinue ST Treatment Duration: Jul 26, 2019 Frequency: 1 time per week Estimated Hrs Per Day: .25 hour per day Loader Technician/Case Mgmt Loader Technician/Case Managemen: Discharge Planning Dietitian/Proofer Prepress Dietitian/Proofer Prepress to monitor nutritional status and make changes and/or recommendations as needed and work with speech pathology on dietary upgrades as the occur. Physician IPOC Medical Issues being managed closely and that require the 24 hour availability of a physician: Acute DVT and significant debility will require close monitoring by physician and new OAC Medical Issues: Bowel/Bladder Function, DVT Prophylaxis, Falls Precautions, Fluid/Electrolyte/Nutrition Balance, Pain Management Brief Synthesis of Preadmission Screen, Post-Admission Evaluation, and Therapy Evaluations: PT will focus on ambulation with walker and increase ROM OT will focus on increasing ADL independence Medical Prognosis: Good Anticipated Length of Stay: 7 days KINJAL SWEENEY DO Jul 27, 2019 12:11 POS
--- NOTE | 2019-07-27 14:28 | NUR ---
Dressing change to left knee incision. Incision line cleansed with alcohol pads. AllKare applied to surrounding tissue. Covered with [place] dressing. Incision is well approximated with mis intact. No drainage noted.
[2019-07-27 17:04] VITALS: BP 127/77
[2019-07-28 06:16] VITALS: BP 120/77
[2019-07-28] MEDS: IBUPROFEN TABLET 200 MG TAB PO SCH ×2 (06:30→12:06)
[2019-07-28] MEDS: ASCORBIC ACID (VIT C) 500 MG TABLET PO SCH (06:30)
[2019-07-28] MEDS: LOSARTAN 100 MG (COZAAR) TABLET PO SCH (08:41)
[2019-07-28] MEDS: APIXABAN 5 MG (ELIQUIS) TABLET PO SCH ×2 (08:41→20:02)
[2019-07-28] MEDS: oxyCODONE ER 10 MG (OxyCONTIN CR) TAB PO SCH ×2 (08:42→20:03)
[2019-07-28] MEDS: SENNA W/DOCUSATE (SENOKOT S) TABLET PO SCH ×2 (08:43→20:02)
[2019-07-28] MEDS: POLYETHYLENE GLYCOL 17 GM (MIRALAX) PACK PO SCH ×2 (08:44→19:48)
--- NOTE | 2019-07-28 10:53 | NUR ---
pt resting comfortably in bed. pt supine with bed elevated. Pt lungs are clear/ bs x 4/ pt denies pain at this time. no edema noted in extremities.
[2019-07-28] MEDS: IRON SUCROSE 200 MG/10 ML (VENOFER) VIAL IV SCH (15:28)
--- NOTE | 2019-07-28 15:56 | PM&R Progress Note ---
Subjective HPI/CC On Admission Date Seen by Provider: Jul 28, 2019 Time Seen by Provider: 11:30 Subjective/Events-last exam Patient doing very well each day Shower has really helped her Pain is getting better and better Edema is much better left leg Using IS BM normal Incision looks good Checked meds and labs Conferred with RN Reviewed therapy notes Review of Systems General: Fatigue Musculoskeletal: leg pain Objective Exam Vital Signs Vital Signs Date Time Temp Pulse Resp B/P (MAP) Pulse Ox O2 Delivery O2 Flow Rate FiO2 07/28/19 09:00 Room Air 07/28/19 06:16 36.6 96 20 120/77 (91) 94 Capillary Refill : General Appearance: No Apparent Distress, WD/WN, Anxious HEENT: PERRL/EOMI, TMs Normal, Normal ENT Inspection, Pharynx Normal Neck: Full Range of Motion, Normal Inspection, Non Tender, Supple, Carotid Bruit Respiratory: Chest Non Tender, Lungs Clear, Normal Breath Sounds, No Accessory Muscle Use, No Respiratory Distress Cardiovascular: Regular Rate, Rhythm, No Edema, No Gallop, No JVD, No Murmur, Normal Peripheral Pulses Gastrointestinal: Normal Bowel Sounds, No Organomegaly, No Pulsatile Mass, Non Tender, Soft Back: Normal Inspection, No CVA Tenderness, No Vertebral Tenderness Extremity: Normal Capillary Refill, Normal Inspection, Normal Range of Motion (except left leg due to edema and recent knee replacement), Non Tender, No Calf Tenderness, No Pedal Edema Neurologic/Psychiatric: Alert, Oriented x3, No Motor/Sensory Deficits, Normal Mood/Affect Skin: Normal Color, Warm/Dry Lymphatic: No Adenopathy Results/Procedures Lab Patient resulted labs reviewed. FIM Transfers Therapy Code Descriptions/Definitions Functional [place] Measure: 0=Not Assessed/NA 4=Minimal Assistance 1=Total Assistance 5=Supervision or Setup 2=Maximal Assistance 6=Modified [place] 3=Moderate Assistance 7=Complete IndependenceSCALE: Activities may be completed with or without assistive devices. 0-Feyjowezam-lzwplzd completes the activity by him/herself with no assistance from a helper. 5-Set-up or Clean-up Assistance-helper sets up or cleans up; patient completes activity. [place] assists only prior to or following the activity. 4-Supervision or Touching Assistance-helper provides verbal cues and/or touching/steadying and/or contact guard assistance as patient completes activity. Assistance may be provided throughout the activity or intermittently. 3-Partial/Moderate Assistance-helper does LESS THAN HALF the effort. [place] lifts, holds or supports trunk or limbs, but provides less than half the effort. 2-Substantial/Maximal Assistance-helper does MORE THAN HALF the effort. [place] lifts or holds trunk or limbs and provides more than half the effort. 1-Zvondacqg-vszzty does ALL the effort. Patient does none of the effort to complete the activity. Or, the assistance of 2 or more helpers is required for the patient to complete the activity. If activity was not attempted, code reason: 7-Patient Refused. 9-Not Applicable-not attempted and the patient did not perform the activity before the current illness, exacerbation or injury. 10-Not Attempted due to Environmental Limitations-(lack of equipment, weather restraints, etc.). 88-Not Attempted due to Medical Conditions or Safety Concerns. Roll Left to Right (QC): 5 Sit to Lying (QC): 5 Sit to Stand (QC): 5 Chair/Pkk-mg-Xqnpx Xfer(QC): 5 Bed to/from Chair: 5 Car Transfer (QC): 4 Gait Training Does the Patient Walk?: Yes Distance (FIM): 3=150 ft Distance: 200' x 2 Walk 10 feet (QC): 5 Walk 50 ft with 2 Turns(QC): 5 Walk 150 ft (QC): 5 Walking 10ft/uneven surface-QC: 4 Gait Assistive Device: FWW Balance Picking up an Object (QC): 3 ADL-Treatment Eating (QC): 6 (per pt report) Oral Hygiene (QC): 4 (CGA in stance. Pt leans on counter for support. ) Shower/Bathe Self (QC): 4 Upper Body Dressing (QC): 5 Lower Body Dressing (QC): 3 On/Off Footwear (QC): 3 Toileting Hygiene (QC): 4 (Min A due to pt's balance fair- requires steadying assist) Toilet Transfer (QC): 4 (CGA assist due to balance ) Assessment/Plan Assessment and Plan Assess & Plan/Chief Complaint Assessment: s/p left knee replacement POD # 10 Acute left leg DVT Slow recovery HTN HLP Iron def anemia Plan: Pain control OAC IV iron IRF Check labs in am (1) Status post left knee replacement (2) Left leg DVT (3) Hypertension (4) Postoperative anemia due to acute blood loss (5) Iron deficiency (6) Hyperlipemia KINJAL SWEENEY DO Jul 28, 2019 15:56 POS
[2019-07-28 18:20] VITALS: BP 111/64
[2019-07-28] MEDS: MELATONIN 3 MG TABLET PO PRN (23:18)
[2019-07-29 05:26] LABS: BASOPHILS # (AUTO) 0.1 10^3/uL (0.0-0.1); BASOPHILS % (AUTO) 1 % (0-10); EOSINOPHILS # (AUTO) 0.3 10^3/uL (0.0-0.3); EOSINOPHILS % (AUTO) 4 % (0-10); HEMATOCRIT 32 % (35-52); HEMOGLOBIN 9.9 G/DL (11.5-16.0); LYMPHOCYTES # (AUTO) 1.7 X 10^3 (1.0-4.0); LYMPHOCYTES % (AUTO) 23 % (12-44); MEAN CORPUSCULAR HEMOGLOBIN 30 PG (25-34); MEAN CORPUSCULAR HGB CONC 31 G/DL (32-36); MEAN CORPUSCULAR VOLUME 96 FL (80-99); MEAN PLATELET VOLUME 9.7 FL (7.4-10.4); MONOCYTES # (AUTO) 0.7 X 10^3 (0.0-1.0); MONOCYTES % (AUTO) 10 % (0-12); NEUTROPHILS # (AUTO) 4.7 X 10^3 (1.8-7.8); NEUTROPHILS % (AUTO) 63 % (42-75); PLATELET COUNT 612 10^3/uL (130-400); RED CELL DISTRIBUTION WIDTH 12.3 % (10.0-14.5); WHITE BLOOD COUNT 7.5 10^3/uL (4.3-11.0)
[2019-07-29] MEDS: ASCORBIC ACID (VIT C) 500 MG TABLET PO SCH (05:45)
[2019-07-29 05:50] LABS: ALANINE AMINOTRANSFERASE 38 U/L (0-55); ALBUMIN 3.7 GM/DL (3.2-4.5); ALKALINE PHOSPHATASE 111 U/L (40-136); BILIRUBIN,TOTAL 0.6 MG/DL (0.1-1.0); BUN/CREATININE RATIO 22; CALCIUM 9.8 MG/DL (8.5-10.1); CARBON DIOXIDE 26 MMOL/L (21-32); CHLORIDE 103 MMOL/L (98-107); CREATININE SERUM 0.82 MG/DL (0.60-1.30); GFR ESTIMATED > 60; GLUCOSE 92 MG/DL (70-105); POTASSIUM 4.1 MMOL/L (3.6-5.0); SODIUM 138 MMOL/L (135-145); TOTAL PROTEIN 7.2 GM/DL (6.4-8.2)
[2019-07-29 06:05] VITALS: BP 118/74
--- NOTE | 2019-07-29 08:04 | PM&R Progress Note ---
Subjective HPI/CC On Admission Date Seen by Provider: Jul 29, 2019 Time Seen by Provider: 08:15 Subjective/Events-last exam Venofer will be given on Monday and that will be her third dose Needs to put weight on the left foot since that knee could be very restricted if not Pain is pretty well controlled on the long acting Bowels are moving well Checked meds and labs Conferred with RN Reviewed therapy notes Review of Systems General: Fatigue Musculoskeletal: leg pain Objective Exam Vital Signs Vital Signs Date Time Temp Pulse Resp B/P (MAP) Pulse Ox O2 Delivery O2 Flow Rate FiO2 07/29/19 18:00 37.6 110 18 115/64 (81) 95 Room Air Capillary Refill : General Appearance: No Apparent Distress, WD/WN, Anxious HEENT: PERRL/EOMI, TMs Normal, Normal ENT Inspection, Pharynx Normal Neck: Full Range of Motion, Normal Inspection, Non Tender, Supple, Carotid Bruit Respiratory: Chest Non Tender, Lungs Clear, Normal Breath Sounds, No Accessory Muscle Use, No Respiratory Distress Cardiovascular: Regular Rate, Rhythm, No Edema, No Gallop, No JVD, No Murmur, Normal Peripheral Pulses Gastrointestinal: Normal Bowel Sounds, No Organomegaly, No Pulsatile Mass, Non Tender, Soft Back: Normal Inspection, No CVA Tenderness, No Vertebral Tenderness Extremity: Normal Capillary Refill, Normal Inspection, Normal Range of Motion (except left leg due to edema and recent knee replacement), Non Tender, No Calf Tenderness, No Pedal Edema Neurologic/Psychiatric: Alert, Oriented x3, No Motor/Sensory Deficits, Normal Mood/Affect Skin: Normal Color, Warm/Dry Lymphatic: No Adenopathy Results/Procedures Lab Laboratory Tests 07/29/19 04:40 07/29/19 04:45 Patient resulted labs reviewed. FIM Transfers Therapy Code Descriptions/Definitions Functional [place] Measure: 0=Not Assessed/NA 4=Minimal Assistance 1=Total Assistance 5=Supervision or Setup 2=Maximal Assistance 6=Modified [place] 3=Moderate Assistance 7=Complete IndependenceSCALE: Activities may be completed with or without assistive devices. 5-Ntlknrrlku-whxilih completes the activity by him/herself with no assistance fr om a helper. 5-Set-up or Clean-up Assistance-helper sets up or cleans up; patient completes activity. [place] assists only prior to or following the activity. 4-Supervision or Touching Assistance-helper provides verbal cues and/or touching/steadying and/or contact guard assistance as patient completes activity. Assistance may be provided throughout the activity or intermittently. 3-Partial/Moderate Assistance-helper does LESS THAN HALF the effort. [place] lifts, holds or supports trunk or limbs, but provides less than half the effort. 2-Substantial/Maximal Assistance-helper does MORE THAN HALF the effort. [place] lifts or holds trunk or limbs and provides more than half the effort. 5-Tdzgefyrh-cjnohb does ALL the effort. Patient does none of the effort to complete the activity. Or, the assistance of 2 or more helpers is required for the patient to complete the activity. If activity was not attempted, code reason: 7-Patient Refused. 9-Not Applicable-not attempted and the patient did not perform the activity before the current illness, exacerbation or injury. 10-Not Attempted due to Environmental Limitations-(lack of equipment, weather restraints, etc.). 88-Not Attempted due to Medical Conditions or Safety Concerns. Roll Left to Right (QC): 5 Sit to Lying (QC): 5 Sit to Stand (QC): 5 Chair/Iav-oo-Pveuu Xfer(QC): 5 Bed to/from Chair: 5 Car Transfer (QC): 4 Gait Training Does the Patient Walk?: Yes Distance (FIM): 3=150 ft Distance: 200' x 2 Walk 10 feet (QC): 5 Walk 50 ft with 2 Turns(QC): 5 Walk 150 ft (QC): 5 Walking 10ft/uneven surface-QC: 4 Gait Assistive Device: FWW Balance Picking up an Object (QC): 3 ADL-Treatment Eating (QC): 6 (per pt report) Oral Hygiene (QC): 4 (CGA in stance. Pt leans on counter for support. ) Shower/Bathe Self (QC): 4 Upper Body Dressing (QC): 5 Lower Body Dressing (QC): 3 On/Off Footwear (QC): 3 Toileting Hygiene (QC): 4 (Min A due to pt's balance fair- requires steadying assist) Toilet Transfer (QC): 4 (CGA assist due to balance ) Assessment/Plan Assessment and Plan Assess & Plan/Chief Complaint Assessment: s/p left knee replacement POD # 11 Acute left leg DVT Slow recovery HTN HLP Iron def anemia Plan: Pain control OAC IV iron IRF Checked (1) Status post left knee replacement (2) Left leg DVT (3) Hypertension (4) Postoperative anemia due to acute blood loss (5) Iron deficiency (6) Hyperlipemia KINJAL SWEENEY DO Jul 29, 2019 08:04 POS
[2019-07-29] MEDS: oxyCODONE ER 10 MG (OxyCONTIN CR) TAB PO SCH ×2 (09:46→20:23)
[2019-07-29] MEDS: APIXABAN 5 MG (ELIQUIS) TABLET PO SCH ×2 (09:46→20:23)
[2019-07-29] MEDS: POLYETHYLENE GLYCOL 17 GM (MIRALAX) PACK PO SCH ×2 (09:46→20:23)
[2019-07-29] MEDS: LOSARTAN 100 MG (COZAAR) TABLET PO SCH (09:47)
[2019-07-29] MEDS: SENNA W/DOCUSATE (SENOKOT S) TABLET PO SCH ×2 (09:47→20:23)
--- NOTE | 2019-07-29 09:58 | Physical Therapy Daily Note ---
PT Daily Note-Current Subjective Pt in bed pre-tx agrees to PT. pt reports pain 4/10 in the L knee and calf at this time. PT donned erendira hose on the RLE per RN request. Appearance pt in recliner post-tx pt with call light, room phone, tray table in reach and all needs met at this time. pt with RN and grandson present in room at this time. Mental Status Patient Orientation: Person, Place, Time, Situation Transfers SCALE: Activities may be completed with or without assistive devices. 8-Asctcuizjw-xtqezco completes the activity by him/herself with no assistance from a helper. 5-Set-up or Clean-up Assistance-helper sets up or cleans up; patient completes activity. [place] assists only prior to or following the activity. 4-Supervision or Touching Assistance-helper provides verbal cues and/or touching/steadying and/or contact guard assistance as patient completes activity. Assistance may be provided throughout the activity or intermittently. 3-Partial/Moderate Assistance-helper does LESS THAN HALF the effort. [place] lifts, holds or supports trunk or limbs, but provides less than half the effort. 2-Substantial/Maximal Assistance-helper does MORE THAN HALF the effort. [place] lifts or holds trunk or limbs and provides more than half the effort. 7-Yuhxukfvs-fcxaln does ALL the effort. Patient does none of the effort to complete the activity. Or, the assistance of 2 or more helpers is required for the patient to complete the activity. If activity was not attempted, code reason: 7-Patient Refused. 9-Not Applicable-not attempted and the patient did not perform the activity before the current illness, exacerbation or injury. 10-Not Attempted due to Environmental Limitations-(lack of equipment, weather restraints, etc.). 88-Not Attempted due to Medical Conditions or Safety Concerns. Roll Left to Right (QC): 6 Sit to Lying (QC): 6 Sit to Stand (QC): 6 Chair/Jmr-cx-Twepq Xfer(QC): 6 Car Transfer (QC): 5 Weight Bearing Right Lower Extremity: Right Weight Bearing/Tolerated Left Lower Extremity: Left Weight Bearing/Tolerated Gait Training Distance: 150'x2 Walk 10 feet (QC): 6 Walk 50 ft with 2 Turns(QC): 6 Walk 150 ft (QC): 4 (SBA) Walking 10ft/uneven surface-QC: 4 Gait Assistive Device: FWW pt ambulates with maintained hip and knee flexion at all time in the LLE. Pt bears very little weight through the LLE this date and gives little to no motion in the L hip and knee. Pt bears increased weight through the B/L UE when approaching the uneven surface the pt got the FWW too far ahead and was not able to hop forward and had to receive a VC to bring FWW back shoe cutter. Wheelchair Training Does the Pt Use a Wheelchair?: No Stair Training #of Steps: 1 1 Step (curb) (QC): 3 ([place]) 4 Steps (QC): 88 12 Steps (QC): 88 Stairs: Pattern: Step to pt took extra time and did 3 bounces on the floor before hoping up onto the curb step where she was only bearing weight through the UE and hopped. Balance Picking up an Object (QC): 6 Exercises Supine Ex: Ankle pumps, Quad Set, Glut sets, Heel Slides, Short Arc Quads, Straight leg raise Supine Reps: 20 (2 sets 10 reps) Treatments pt performed skilled ambulation training, bed mobility training, transfer training, functional LE strengthening exercises, and education this date. Assessment Current Status: Poor Progress pt restrict motion in the LLE through ambulation and LE strengthening exercises. PT spoke of need to regain motion and the need to fire the LE muscles. Pt keeps hip flexed forward and bears very little weight through the LLE without TKE. PT Residential Goals Artificial Teeth Inspector Goals PT Residential Goals Time Frame: Aug 10, 2019 Sit to Lying (QC): 6 Lying-Sitting on Side/Bed(QC): 6 Sit to Stand (QC): 6 Roll Left to Right (QC): 6 Chair/Aqy-to-Lmvok Xfer(QC): 6 Car Transfer (QC): 6 Does the Patient Walk: Yes Distance: 200' Walk 10 feet (QC): 6 Walk 10ft-Uneven Surface(QC): 6 Walk 50ft with 2 Turns (QC): 6 Walk 150 ft (QC): 6 Gait Assistive Device: FWW # of Steps: 12 1 Step (curb) (QC): 6 4 Steps (QC): 6 12 Steps (QC): 6 Picking up an Object (QC): 6 PT Plan Problem List Problem List: Activity Tolerance, Functional Strength, Safety, Balance, Gait, Transfer, Bed Mobility, ROM Treatment/Plan Treatment Plan: Continue Plan of Care Treatment Plan: Bed Mobility, Concurrent Therapy, Education, Functional Activity Abdoul, Functional Strength, Group Therapy, Gait, Safety, Therapeutic Exercise, Transfers Treatment Duration: Aug 10, 2019 Frequency: At least 5 of 7 days/Wk (IRF) Estimated Hrs Per Day: 1.5 hours per day Patient and/or Family Agrees t: Yes Safety Risks/Education Patient Education: Gait Training, Transfer Techniques, Steps, Correct Positioning, Safety Issues Teaching Recipient: Patient Teaching Methods: Demonstration, Discussion Response to Teaching: Return Demonstration, Reinforcement Needed Time/GCodes Time In: 900 Time Out: 1000 Total Billed Treatment Time: 60 Total Billed Treatment 1 visit EX 30' GT 15' FA 15' JAMARI ROTH PT Jul 29, 2019 09:58 POS
--- NOTE | 2019-07-29 11:46 | NUR ---
Initial assessment completed with patient who was admitted 07/26/19 for post op left knee replacement, thromboembolism with severe edema, calf tenderness, inability to ambulate/navigate at home. 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 She has other attentive family members including her son Abdiel Govea and grandson. HHC: After knee replacement, patient was initially discharged home with [facility]. Patient stated this agency remains her preferred choice and these services will be resumed upon discharge from ARU. DME: Patient was discharged home post op with FWW, stool riser, CPM, and the polar pack. She indicates no new DME needs at this time. Patient is insured Medicare and [employer] supplement. Weekly team conference purpose was introduced and patient reflected understanding. Following for intermittent updates relative to post hospital care.
--- NOTE | 2019-07-29 12:56 | NUR ---
RD ASSESSMENT PMHx: HTN; s/p knee replacement PT INTERACTION: Pt was awake and pleasant during nutrition assessment. Pt states current appetite is "alright" and that she just doesn't eat a lot. Pt states she typically forgoes eating lunch because she doesn't feel hungry. Note pt avg PO intake of between 50-75% x3d, per chart review. Pt states no recent issues with n/v/c/d at this time. Note last BM was 07/28 and pt currently on bowel regimen of miralax BID, senna BID, colace PRN, bisacodyl PRN, per chart review. Pt states some recent wt loss and described it as "not a lot of weight, but some." Note unable to determine recent wt hx, per chart review. ABNORMAL NUTRITION-RELATED LAB VALUES: labs WNL Est. kcal needs: 7632-3465 kcal | 25-30 kcal/kg Est. Pro needs: 61-72 g Pro | 1.0-1.2 g Pro/kg PES STATEMENT: Inadequate oral intake (NI-2.1) related to loss of appetite as evidenced by pt interview INTERVENTION: Continue with current diet order of Heart Healthy diet. Pt may benefit from nutrition supplementation if PO intake declines. Will continue to follow and reassess as pt needs and status change. MONITOR/EVALUATE: PO Intake; Plan of Care; Hydration Status; Weight Status; Lab Values Román Bell, MS, RD, LD
--- NOTE | 2019-07-29 13:08 | Occupational Ther Daily Note ---
OT Current Status-Daily Note Subjective Pt. reports pain in left knee, but does not report pain number. Does request pain medication and nursing comes in to give pt. pain pill. Appearance Pt. is up in chair. Spouse in room. Pt. has just learned that her dog has to go to the vet today to be put to sleep. Pt. needs increased encouragement to participate. Mental Status/Objective Patient Orientation: Person, Place, Time, Situation ADL-Treatment Therapy Code Descriptions/Definitions Functional [place] Measure: 0=Not Assessed/NA 4=Minimal Assistance 1=Total Assistance 5=Supervision or Setup 2=Maximal Assistance 6=Modified [place] 3=Moderate Assistance 7=Complete IndependenceSCALE: Activities may be completed with or without assistive devices. 8-Npgatomlgi-sxswtjo completes the activity by him/herself with no assistance from a helper. 5-Set-up or Clean-up Assistance-helper sets up or cleans up; patient completes activity. [place] assists only prior to or following the activity. 4-Supervision or Touching Assistance-helper provides verbal cues and/or to uching/steadying and/or contact guard assistance as patient completes activity. Assistance may be provided throughout the activity or intermittently. 3-Partial/Moderate Assistance-helper does LESS THAN HALF the effort. [place] lifts, holds or supports trunk or limbs, but provides less than half the effort. 2-Substantial/Maximal Assistance-helper does MORE THAN HALF the effort. [place] lifts or holds trunk or limbs and provides more than half the effort. 0-Jefplpliv-opxuyf does ALL the effort. Patient does none of the effort to complete the activity. Or, the assistance of 2 or more helpers is required for the patient to complete the activity. If activity was not attempted, code reason: 7-Patient Refused. 9-Not Applicable-not attempted and the patient did not perform the activity before the current illness, exacerbation or injury. 10-Not Attempted due to Environmental Limitations-(lack of equipment, weather restraints, etc.). 88-Not Attempted due to Medical Conditions or Safety Concerns. Oral Hygiene (QC): 5 (Set up at sink) Shower/Bathe Self (QC): 4 (SBA at sink. Pt. sits for most of sponge bath, but stands at times.) Upper Body Dressing (QC): 5 (Set up) Lower Body Dressing (QC): 3 (Pt. is able to don underwear, pants, and socks with increased effort, and with no equipment while seated on chair at sink. Pt. is able to don right shoe, but not left shoe. Requires assistance with this due to swelling.) Toileting Hygiene (QC): 7 Toilet Transfer (QC): 7 Other Treatment Pt. requires encouragement to participate in therapy this date. Pt. verbalizes that she wants to go home, but does not think that she can. Attempts at first to state, "I'm not doing anything." Pt. is gently encouraged that she will need to participate in OT session to stay on rehab. Pt. verbalizes understanding. After ADLs seated at sink, pt. agrees to ambulate to therapy kitchen. Requires SBA with walker. Pt. is educated on walker basket, and educated on kitchen safety, such as sitting while working at the stove and sink, using paper plates if needed, and having her spouse set the kitchen up to make items easier to reach. Pt. verbalizes understanding. Pt. ambulates to bathroom area with walker and SBA and is shown tub transfer bench for safe tub transfer. Pt. verbalizes that her daughter in law can obtain a bench for her, as she is the director of an assisted living in [facility]. Pt. ambulates back to room and is able to transfer to bed with SBA. Pt. participates in UE exercises with red theraband x 3 exercises x 15 reps each. Tolerated this to increase overall strength and independence with daily tasks. All needs met and pt. in room resting. Education OT Patient Education: Correct positioning, Exercise program, Modified ADL t echniques, Progress toward Goal/Update tx plan, Purpose of tx/functional activities, Reviewed precautions, Rehab process, Transfer techniques Teaching Recipient: Patient Teaching Methods: Demonstration, Discussion Response to Teaching: Verbalize Understanding, Return Demonstration OT Short Term Goals Short Term Goals 1=Demonstrate adherence to instructed precautions during ADL tasks. 2=Patient will verbalize/demonstrate understanding of assistive devices/modifications for ADL. 3=Patient will improve strength/tolerance for activity to enable patient to perform ADL's. OT Care Home Goals Care Home Goals Time Frame: Aug 09, 2019 Eating (QC): 6 (met) Oral Hygiene (QC): 6 Shower/Bathe Self (QC): 6 Upper Body Dressing (QC): 6 Lower Body Dressing (QC): 6 On/Off Footwear (QC): 6 Toileting Hygiene (QC): 6 Toilet/Commode Transfer (QC): 6 Additional Goals: 1-Demonstrate ADL Tasks, 2-Verbalize Understanding, 3- ImproveStrength/Abdoul 1=Demonstrate adherence to instructed precautions during ADL tasks. 2=Patient will verbalize/demonstrate understanding of assistive devices/modifications for ADL. 3=Patient will improve strength/tolerance for activity to enable patient to perform ADL's. OT Education/Plan Problem List/Assessment Assessment: Decreased Activ Tolerance, Decreased UE Strength, Dependent Transfers, Impaired I ADL's, Impaired Self-Care Skills Pt demonstrates decreased mobility, ADL functioning, strength, and activity tolerance. Pt to benefit from skilled OT intervention for ADL training, transfers, strengthening, and safety education to increase level of independence and allow safe discharge home. Discharge Recommendations Plan/Recommendations: Continue POC Therapy Discharge Recommendati: Post Acute OT Equpiment Recommendations-D/C: Extended Bath Bench, Walker Bag or Basket Treatment Plan/Plan of Care Treatment,Training & Education: Yes Patient would benefit from OT for education, treatment and training to promote independence in ADL's, mobility, safety and/or upper extremity function for ADL's. Plan of Care: ADL Retraining, Functional Mobility, Group Exercise/Act as Ind, UE Funct Exercise/Act Treatment Duration: Aug 09, 2019 Frequency: At least 5 of 7 days/Wk (IRF) Estimated Hrs Per Day: 1.5 hours per day Agreement: Yes Rehab Potential: Good Time/GCodes Start Time: 10:45 Stop Time: 12:15 Total Time Billed (hr/min): 90 Billed Treatment Time 1, ADL x 75minutes, Ex x 15minutes ELAINE THAYER OT Jul 29, 2019 13:08 POS
--- NOTE | 2019-07-29 15:27 | Physical Therapy Daily Note ---
PT Daily Note-Current Subjective " I have to learn to walk all over again." Agrees to PT. Mental Status Patient Orientation: Person, Place, Time, Situation Transfers SCALE: Activities may be completed with or without assistive devices. 1-Itliegoxwv-yszyrpb completes the activity by him/herself with no assistance from a helper. 5-Set-up or Clean-up Assistance-helper sets up or cleans up; patient completes activity. [place] assists only prior to or following the activity. 4-Supervision or Touching Assistance-helper provides verbal cues and/or touching/steadying and/or contact guard assistance as patient completes activity. Assistance may be provided throughout the activity or intermittently. 3-Partial/Moderate Assistance-helper does LESS THAN HALF the effort. [place] lifts, holds or supports trunk or limbs, but provides less than half the effort. 2-Substantial/Maximal Assistance-helper does MORE THAN HALF the effort. [place] lifts or holds trunk or limbs and provides more than half the effort. 6-Rdcmzsngl-ixekgo does ALL the effort. Patient does none of the effort to complete the activity. Or, the assistance of 2 or more helpers is required for the patient to complete the activity. If activity was not attempted, code reason: 7-Patient Refused. 9-Not Applicable-not attempted and the patient did not perform the activity before the current illness, exacerbation or injury. 10-Not Attempted due to Environmental Limitations-(lack of equipment, weather restraints, etc.). 88-Not Attempted due to Medical Conditions or Safety Concerns. Lying to Sitting/Side of Bed(Q: 4 Sit to Stand (QC): 4 Weight Bearing Right Lower Extremity: Right Weight Bearing/Tolerated Left Lower Extremity: Left Weight Bearing/Tolerated Gait Training Gait training with FWW with near 100% cueing for sequencing and pattern to include heel strike, toe off with knee flexion left and step through right with manual assist to propel walker for consistent pace. Pt ambulated x 80 ft x 5 reps with CGA. Heavy cues for sequencing and technique. During rest breaks encourage indep movement of the knee and ankle as she tends to move her left leg as a unit, only using the hip joint. Assessment Current Status: Fair Progress Gt pattern improves with constant cues but as soon as the cues stop, she returns to a stiff leg gait and no heel strike, toe off or step through. PT Starchmaker Goals Starchmaker Goals PT Starchmaker Goals Time Frame: Aug 10, 2019 Roll Left & Right (QC): 6 Sit to Lying (QC): 6 Lying-Sitting on Side/Bed(QC): 6 Sit to Stand (QC): 6 Chair/Lhn-hv-Tpqjd Xfer(QC): 6 Toilet Transfer (QC): 6 Car Transfer (QC): 6 Does the Patient Walk: Yes Walk 10 feet (QC): 6 Walk 50ft with 2 Turns (QC): 6 Walk 150 ft (QC): 6 Walking 10ft on Uneven Surface: 6 1 Step (curb) (QC): 6 4 Steps (QC): 6 12 Steps (QC): 6 Picking up an Object (QC): 6 Does the Pt use WC or Scooter?: No Type: N/A Type: N/A PT Plan Problem List Problem List: Activity Tolerance, Functional Strength, Safety, Balance, Gait, Transfer Treatment/Plan Treatment Plan: Continue Plan of Care Treatment Plan: Bed Mobility, Concurrent Therapy, Education, Functional Activity Abdoul, Functional Strength, Group Therapy, Gait, Safety, Therapeutic Exercise, Transfers Treatment Duration: Aug 10, 2019 Frequency: At least 5 of 7 days/Wk (IRF) Estimated Hrs Per Day: 1.5 hours per day Patient and/or Family Agrees t: Yes Safety Risks/Education Patient Education: Gait Training Teaching Recipient: Patient Teaching Methods: Demonstration, Discussion Response to Teaching: Return Demonstration, Reinforcement Needed Time/GCodes Time In: 1330 Time Out: 1400 Total Billed Treatment Time: 30 Total Billed Treatment visit Gt 30 BRYAN PLATA PT Jul 29, 2019 15:27 POS
[2019-07-29 16:00] VITALS: BP 118/76
[2019-07-29 18:00] VITALS: BP 115/64
[2019-07-30 05:22] VITALS: BP 117/73
[2019-07-30] MEDS: ASCORBIC ACID (VIT C) 500 MG TABLET PO SCH (06:04)
[2019-07-30] MEDS: POLYETHYLENE GLYCOL 17 GM (MIRALAX) PACK PO SCH ×2 (07:51→21:13)
[2019-07-30] MEDS: SENNA W/DOCUSATE (SENOKOT S) TABLET PO SCH ×2 (07:51→21:09)
--- NOTE | 2019-07-30 08:34 | PM&R Progress Note ---
Subjective HPI/CC On Admission Date Seen by Provider: Jul 30, 2019 Time Seen by Provider: 08:15 Subjective/Events-last exam X-Ray of the knee will be evaluated after I conferred with Dr. Pérez since PT was concerned about the alignment. Did not sleep well so will start Remeron 7.5 Mg QHS. Will start CPM if the X-ray has good alignment. Overall doesn't cope well so will continue supportive care and help resolve this difficult situation Checked meds and labs Conferred with RN Reviewed therapy notes Review of Systems General: Fatigue Musculoskeletal: leg pain Objective Exam Vital Signs Vital Signs Date Time Temp Pulse Resp B/P (MAP) Pulse Ox O2 Delivery O2 Flow Rate FiO2 07/30/19 17:28 37.0 106 18 111/68 (82) 96 Room Air Capillary Refill : General Appearance: No Apparent Distress, WD/WN, Anxious HEENT: PERRL/EOMI, TMs Normal, Normal ENT Inspection, Pharynx Normal Neck: Full Range of Motion, Normal Inspection, Non Tender, Supple, Carotid Bruit Respiratory: Chest Non Tender, Lungs Clear, Normal Breath Sounds, No Accessory Muscle Use, No Respiratory Distress Cardiovascular: Regular Rate, Rhythm, No Edema, No Gallop, No JVD, No Murmur, Normal Peripheral Pulses Gastrointestinal: Normal Bowel Sounds, No Organomegaly, No Pulsatile Mass, Non Tender, Soft Back: Normal Inspection, No CVA Tenderness, No Vertebral Tenderness Extremity: Normal Capillary Refill, Normal Inspection, Normal Range of Motion (except left leg due to edema and recent knee replacement), Non Tender, No Calf Tenderness, No Pedal Edema Neurologic/Psychiatric: Alert, Oriented x3, No Motor/Sensory Deficits, Normal Mood/Affect Skin: Normal Color, Warm/Dry Lymphatic: No Adenopathy Results/Procedures Lab Patient resulted labs reviewed. FIM Transfers Therapy Code Descriptions/Definitions Functional [place] Measure: 0=Not Assessed/NA 4=Minimal Assistance 1=Total Assistance 5=Supervision or Setup 2=Maximal Assistance 6=Modified [place] 3=Moderate Assistance 7=Complete IndependenceSCALE: Activities may be completed with or without assistive devices. 3-Rudfzvutxv-okdyoxm completes the activity by him/herself with no assistance from a helper. 5-Set-up or Clean-up Assistance-helper sets up or cleans up; patient completes activity. [place] assists only prior to or following the activity. 4-Supervision or Touching Assistance-helper provides verbal cues and/or touching/steadying and/or contact guard assistance as patient completes activity. Assistance may be provided throughout the activity or intermittently. 3-Partial/Moderate Assistance-helper does LESS THAN HALF the effort. [place] lifts, holds or supports trunk or limbs, but provides less than half the effort. 2-Substantial/Maximal Assistance-helper does MORE THAN HALF the effort. [place] lifts or holds trunk or limbs and provides more than half the effort. 2-Cskhnrezc-mvnohc does ALL the effort. Patient does none of the effort to complete the activity. Or, the assistance of 2 or more helpers is required for the patient to complete the activity. If activity was not attempted, code reason: 7-Patient Refused. 9-Not Applicable-not attempted and the patient did not perform the activity before the current illness, exacerbation or injury. 10-Not Attempted due to Environmental Limitations-(lack of equipment, weather restraints, etc.). 88-Not Attempted due to Medical Conditions or Safety Concerns. Roll Left to Right (QC): 6 Sit to Lying (QC): 6 Sit to Stand (QC): 4 Chair/Ewj-mu-Wcnqh Xfer(QC): 6 Bed to/from Chair: 5 Car Transfer (QC): 5 Gait Training Does the Patient Walk?: Yes Distance (FIM): 3=150 ft Distance: 150'x2 Walk 10 feet (QC): 6 Walk 50 ft with 2 Turns(QC): 6 Walk 150 ft (QC): 4 (SBA) Walking 10ft/uneven surface-QC: 4 Gait Assistive Device: FWW Wheelchair Training Does the Pt Use a Wheelchair?: No Stair Training #of Steps: 1 1 Step (curb) (QC): 3 ([place]) 4 Steps (QC): 88 12 Steps (QC): 88 Stairs: Pattern: Step to Balance Picking up an Object (QC): 6 ADL-Treatment Eating (QC): 6 (per pt report) Oral Hygiene (QC): 5 (Set up at sink) Shower/Bathe Self (QC): 4 (SBA at sink. Pt. sits for most of sponge bath, but stands at times.) Upper Body Dressing (QC): 5 (Set up) Lower Body Dressing (QC): 3 (Pt. is able to don underwear, pants, and socks with increased effort, and with no equipment while seated on chair at sink. Pt. is able to don right shoe, but not left shoe. Requires assistance with this due to swelling.) On/Off Footwear (QC): 3 Toileting Hygiene (QC): 7 Toilet Transfer (QC): 7 Assessment/Plan Assessment and Plan Assess & Plan/Chief Complaint Assessment: s/p left knee replacement POD # 12 Acute left leg DVT Slow recovery HTN HLP Iron def anemia Plan: Pain control OAC IV iron IRF Checked xray (1) Status post left knee replacement (2) Left leg DVT (3) Hypertension (4) Postoperative anemia due to acute blood loss (5) Iron deficiency (6) Hyperlipemia KINJAL SWEENEY DO Jul 30, 2019 08:34 POS
--- NOTE | 2019-07-30 08:56 | Physical Therapy Daily Note ---
PT Daily Note-Current Subjective pt in bed pre-tx agrees to PT but wants to get dressed first. pt reports 5/10 pain in the L knee and calf as well as nausea at this time. Appearance pt in recliner post-tx with call light, room phone and tray table in reach with all needs met at this time. Mental Status Patient Orientation: Person, Place, Time, Situation Attachments: IV Transfers SCALE: Activities may be completed with or without assistive devices. 8-Eyrhogzugc-hjbvxqd completes the activity by him/herself with no assistance from a helper. 5-Set-up or Clean-up Assistance-helper sets up or cleans up; patient completes activity. [place] assists only prior to or following the activity. 4-Supervision or Touching Assistance-helper provides verbal cues and/or touching/steadying and/or contact guard assistance as patient completes activity. Assistance may be provided throughout the activity or intermittently. 3-Partial/Moderate Assistance-helper does LESS THAN HALF the effort. [place] lift s, holds or supports trunk or limbs, but provides less than half the effort. 2-Substantial/Maximal Assistance-helper does MORE THAN HALF the effort. [place] lifts or holds trunk or limbs and provides more than half the effort. 2-Vetqudvau-hwsvhh does ALL the effort. Patient does none of the effort to complete the activity. Or, the assistance of 2 or more helpers is required for the patient to complete the activity. If activity was not attempted, code reason: 7-Patient Refused. 9-Not Applicable-not attempted and the patient did not perform the activity before the current illness, exacerbation or injury. 10-Not Attempted due to Environmental Limitations-(lack of equipment, weather restraints, etc.). 88-Not Attempted due to Medical Conditions or Safety Concerns. Lying to Sitting/Side of Bed(Q: 4 (SBA) Sit to Stand (QC): 4 (CGA) Weight Bearing Right Lower Extremity: Right Weight Bearing/Tolerated Left Lower Extremity: Left Weight Bearing/Tolerated Gait Training Distance: 100'x2 Walk 10 feet (QC): 4 (CGA) Walk 50 ft with 2 Turns(QC): 4 (CGA) Gait Assistive Device: FWW pt continues to maintain hip and knee flexion on the LLE during ambulation. Pt requires constant heavy cuing to normalize gait. as pt corrects to gain heel first contact and knee flexion for swing through pt begins to hip hike and raise onto the RLE toes for L swing. Pt uses increased UE WB'ing and resists weight on the LLE. Exercises Standin way Ex=Flex, Abd, Ext Standing Reps: 10 NuStep Minutes: 10 NuStep Workload: 1 Treatments pt performed skilled ambulation training, functional LE strengthening/endurance exercises, transfer training, bed mobility training, and education. Assessment Current Status: Fair Progress pt continues to resist cuing and when cuing is held pt resorts back to short choppy steps and abnormal gait pattern. Pt reports increased pain and nausea and fatigue in the UE this session. Pt mentions multiple times she is worried about having to go back to surgery now. Pt was able to progress increased ROM on the LLE through the Nustep. PT Renal Dialysis Technician Goals Group Home Goals PT Renal Dialysis Technician Goals Time Frame: Aug 10, 2019 Roll Left & Right (QC): 6 Sit to Lying (QC): 6 Lying-Sitting on Side/Bed(QC): 6 Sit to Stand (QC): 6 Chair/Ike-mr-Jjrrf Xfer(QC): 6 Toilet Transfer (QC): 6 Car Transfer (QC): 6 Does the Patient Walk: Yes Walk 10 feet (QC): 6 Walk 50ft with 2 Turns (QC): 6 Walk 150 ft (QC): 6 Walking 10ft on Uneven Surface: 6 1 Step (curb) (QC): 6 4 Steps (QC): 6 12 Steps (QC): 6 Picking up an Object (QC): 6 Does the Pt use WC or Scooter?: No Type: N/A Type: N/A PT Plan Problem List Problem List: Activity Tolerance, Functional Strength, Safety, Balance, Gait, Transfer, Bed Mobility, ROM Treatment/Plan Treatment Plan: Continue Plan of Care Treatment Plan: Bed Mobility, Concurrent Therapy, Education, Functional Activity Abdoul, Functional Strength, Group Therapy, Gait, Safety, Therapeutic Exercise, Transfers Treatment Duration: Aug 10, 2019 Frequency: At least 5 of 7 days/Wk (IRF) Estimated Hrs Per Day: 1.5 hours per day Patient and/or Family Agrees t: Yes Safety Risks/Education Patient Education: Gait Training, Transfer Techniques, Correct Positioning, Safety Issues Teaching Recipient: Patient Teaching Methods: Demonstration, Discussion Response to Teaching: Reinforcement Needed Time/GCodes Time In: 800 Time Out: 900 Total Billed Treatment Time: 60 Total Billed Treatment 1 visit GT 30' FA 30' JAMARI ROTH PT Jul 30, 2019 08:56 POS
[2019-07-30] MEDS: LOSARTAN 100 MG (COZAAR) TABLET PO SCH (09:42)
[2019-07-30] MEDS: APIXABAN 5 MG (ELIQUIS) TABLET PO SCH ×2 (09:42→21:09)
[2019-07-30] MEDS: oxyCODONE ER 10 MG (OxyCONTIN CR) TAB PO SCH ×2 (09:42→21:09)
--- NOTE | 2019-07-30 10:43 | Occupational Ther Daily Note ---
OT Current Status-Daily Note Subjective Pt upright in recliner at start of session, agreeable to OT tx with focus on ADLs this AM. Pt reported 10/10 pain in left leg at start of session, nursing notified. ADL-Treatment Therapy Code Descriptions/Definitions Functional [place] Measure: 0=Not Assessed/NA 4=Minimal Assistance 1=Total Assistance 5=Supervision or Setup 2=Maximal Assistance 6=Modified [place] 3=Moderate Assistance 7=Complete IndependenceSCALE: Activities may be completed with or without assistive devices. 8-Zgxtvsrvhs-omhljty completes the activity by him/herself with no assistance from a helper. 5-Set-up or Clean-up Assistance-helper sets up or cleans up; patient completes activity. [place] assists only prior to or following the activity. 4-Supervision or Touching Assistance-helper provides verbal cues and/or touching/steadying and/or contact guard assistance as patient completes activity. Assistance may be provided throughout the activity or intermittently. 3-Partial/Moderate Assistance-helper does LESS THAN HALF the effort. [place] lifts, holds or supports trunk or limbs, but provides less than half the effort. 2-Substantial/Maximal Assistance-helper does MORE THAN HALF the effort. [place] lifts or holds trunk or limbs and provides more than half the effort. 8-Qtpfhxtri-azlumk does ALL the effort. Patient does none of the effort to comp lete the activity. Or, the assistance of 2 or more helpers is required for the patient to complete the activity. If activity was not attempted, code reason: 7-Patient Refused. 9-Not Applicable-not attempted and the patient did not perform the activity before the current illness, exacerbation or injury. 10-Not Attempted due to Environmental Limitations-(lack of equipment, weather restraints, etc.). 88-Not Attempted due to Medical Conditions or Safety Concerns. Bathing Location: L Arm, R Arm, L Upper Leg, R Upper Leg, L Lower Leg (including foot), R Lower Leg (including foot), Chest, Abdomen, Buttocks, Yanira genesis Area Shower/Bathe Self (QC): 4 (Pt able to complete all aspects of shower with SBA) Upper Body Dressing (QC): 5 (With set up, pt able to don/doff pullover shirt and bra) Lower Body Dressing (QC): 3 (Pt able to doff lower body clothing without assist. Required assistance threading underwear over left leg due to it getting caught on toes, she was then able to don underwear and pants with SBA during stand.) FOOTWEAR QC: 3 (Pt able to remove socks, using long handled shoe horn to push left sock off of foot. She required assistance donning left shoe but was able to don right without assist.) Other Treatment Pt ambulated from recliner to shower chair using FWW with SBA. she completed showering/bathing at shower chair. She then ambulated to recliner with FWW with SBA. Nursing changed dressing on left knee and provided pt with meds. Pt then brushed her hair with hair brush that was sitting on her tray table. In order to increase pt's UE strength and functional endurance with tasks, pt completed the following exercises/functional activity: 1) BUE 1 lb free weight x20 reps each shoulder flexion and elbow flexion. 2) 1" foam pegboard, pt placed/removed pegs using LUE, completing x70 pegs in 18:30mins. Pt required rest breaks between activities secondary to increased pain in her left knee. Post OT session, pt seated in recliner, call light in reach and all needs met. Education OT Patient Education: Correct positioning, Energy conservation, Exercise program, Modified ADL techniques, Progress toward Goal/Update tx plan, Purpose of tx/functional activities, Transfer techniques Teaching Recipient: Patient Teaching Methods: Demonstration, Discussion Response to Teaching: Verbalize Understanding OT Longterm Goals Pneumatic Drum Sander Goals Time Frame: Aug 09, 2019 Eating (QC): 6 (met) Oral Hygiene (QC): 6 Toileting Hygiene (QC): 6 Shower/Bathe Self (QC): 6 Upper Body Dressing (QC): 6 Lower Body Dressing (QC): 6 On/Off Footwear (QC): 6 Additional Goals: 1-Demonstrate ADL Tasks, 2-Verbalize Understanding, 3-Impr oveStrength/Abdoul 1=Demonstrate adherence to instructed precautions during ADL tasks. 2=Patient will verbalize/demonstrate understanding of assistive devices/modifications for ADL. 3=Patient will improve strength/tolerance for activity to enable patient to perform ADL's. OT Education/Plan Problem List/Assessment Assessment: Decreased Activ Tolerance, Decreased UE Strength, Impaired I ADL's, Impaired Self-Care Skills Pt demonstrates decreased mobility, ADL functioning, strength, and activity tolerance. Pt to benefit from skilled OT intervention for ADL training, transfers, strengthening, and safety education to increase level of independence and allow safe discharge home. Discharge Recommendations Plan/Recommendations: Continue POC Treatment Plan/Plan of Care Treatment,Training & Education: Yes Patient would benefit from OT for education, treatment and training to promote independence in ADL's, mobility, safety and/or upper extremity function for ADL's. Plan of Care: ADL Retraining, Functional Mobility, Group Exercise/Act as Ind, UE Funct Exercise/Act Treatment Duration: Aug 09, 2019 Frequency: At least 5 of 7 days/Wk (IRF) Estimated Hrs Per Day: 1.5 hours per day Agreement: Yes Rehab Potential: Good Time/GCodes Start Time: 09:00 Stop Time: 10:30 Total Time Billed (hr/min): 90 Billed Treatment Time 1, ADL 4 (60mins), EX (10mins), FA (20mins) JIMBO WORLEY OT Jul 30, 2019 10:43 POS
--- NOTE | 2019-07-30 12:29 | Diagnostic Imaging Report ---
INDICATION: Knee replacement two weeks ago, with pain. FINDINGS: Soft tissue mis are present. No suspicious retained opaque foreign body. There is tricompartmental knee replacement. No bony destruction or osteolysis. No abnormal periosteal reaction. No definite joint effusion. No fracture. IMPRESSION: No unexpected postoperative finding post total knee arthroplasty. Dictated by: Dictated on workstation # [id number]
--- NOTE | 2019-07-30 14:37 | Physical Therapy Daily Note ---
PT Daily Note-Current Subjective pt in bed pre-tx agrees to therapy. pt reports 6/10 pain in the LLE knee and calf Appearance pt in bed with CPM set to 54degrees flexion and -2degrees past extension. pt with call light, room phone, and tray table in reach with all needs met at this time. Mental Status Patient Orientation: Person, Place, Time, Situation Attachments: [place] CPM Transfers SCALE: Activities may be completed with or without assistive devices. 2-Zkxuoawitq-vthvxhb completes the activity by him/herself with no assistance from a helper. 5-Set-up or Clean-up Assistance-helper sets up or cleans up; patient completes activity. [place] assists only prior to or following the activity. 4-Supervision or Touching Assistance-helper provides verbal cues and/or touching/steadying and/or contact guard assistance as patient completes activity. Assistance may be provided throughout the activity or intermittently. 3-Partial/Moderate Assistance-helper does LESS THAN HALF the effort. [place] lifts, holds or supports trunk or limbs, but provides less than half the effort. 2-Substantial/Maximal Assistance-helper does MORE THAN HALF the effort. [place] lifts or holds trunk or limbs and provides more than half the effort. 6-Dcdvmgugt-xcgsnc does ALL the effort. Patient does none of the effort to complete the activity. Or, the assistance of 2 or more helpers is required for the patient to complete the activity. If activity was not attempted, code reason: 7-Patient Refused. 9-Not Applicable-not attempted and the patient did not perform the activity before the current illness, exacerbation or injury. 10-Not Attempted due to Environmental Limitations-(lack of equipment, weather restraints, etc.). 88-Not Attempted due to Medical Conditions or Safety Concerns. Weight Bearing Right Lower Extremity: Right Weight Bearing/Tolerated Left Lower Extremity: Left Weight Bearing/Tolerated Exercises Supine Ex: Ankle pumps, Quad Set, Glut sets, Heel Slides, Short Arc Quads, Straight leg raise, Hip abd/add Supine Reps: 30 (3sets 10 reps) Treatments pt performed bed mobility training, functional LE strengthening exercises and e ducation. Assessment Current Status: Fair Progress pt continues to restrict L knee mobility but minal the CPM being placed. PT Jail Goals Jail Goals PT Frit Mixer Goals Time Frame: Aug 10, 2019 Roll Left & Right (QC): 6 Sit to Lying (QC): 6 Lying-Sitting on Side/Bed(QC): 6 Sit to Stand (QC): 6 Chair/Bdm-rp-Wbmgp Xfer(QC): 6 Toilet Transfer (QC): 6 Car Transfer (QC): 6 Does the Patient Walk: Yes Walk 10 feet (QC): 6 Walk 50ft with 2 Turns (QC): 6 Walk 150 ft (QC): 6 Walking 10ft on Uneven Surface: 6 1 Step (curb) (QC): 6 4 Steps (QC): 6 12 Steps (QC): 6 Picking up an Object (QC): 6 Does the Pt use WC or Scooter?: No Type: N/A Type: N/A PT Plan Problem List Problem List: Activity Tolerance, Functional Strength, Safety, Balance, Gait, Transfer, Bed Mobility, ROM Treatment/Plan Treatment Plan: Continue Plan of Care Treatment Plan: Bed Mobility, Concurrent Therapy, Education, Functional Activity Abdoul, Functional Strength, Group Therapy, Gait, Safety, Therapeutic Exercise, Transfers Treatment Duration: Aug 10, 2019 Frequency: At least 5 of 7 days/Wk (IRF) Estimated Hrs Per Day: 1.5 hours per day Patient and/or Family Agrees t: Yes Safety Risks/Education Patient Education: Correct Positioning, Safety Issues Teaching Recipient: Patient Teaching Methods: Demonstration, Discussion Response to Teaching: Return Demonstration, Reinforcement Needed Time/GCodes Time In: 1330 Time Out: 1400 Total Billed Treatment Time: 30 Total Billed Treatment 1 visit EX 30' JAMARI ROTH PT Jul 30, 2019 14:37 POS
[2019-07-30] MEDS: IRON SUCROSE 200 MG/10 ML (VENOFER) VIAL IV SCH (16:10)
[2019-07-30 17:28] VITALS: BP 111/68
[2019-07-30] MEDS: DICLOFENAC 1% GEL 100 GM (VOLTAREN) TUBE TOP SCH ×2 (17:54→21:14)
[2019-07-30] MEDS: MIRTAZAPINE 15 MG (REMERON) TAB PO SCH (21:09)
[2019-07-31 05:02] VITALS: BP 122/73
[2019-07-31] MEDS: ASCORBIC ACID (VIT C) 500 MG TABLET PO SCH (05:54)
--- NOTE | 2019-07-31 07:44 | PM&R Progress Note ---
Subjective HPI/CC On Admission Date Seen by Provider: Jul 31, 2019 Time Seen by Provider: 08:15 Subjective/Events-last exam Calf pain continues so that will so she will have to adjust to that fact Oral anticoagulation maintain Venofer DC she did not want an IV restarted since it infiltrated yesterday Overall feels like she is progressing Dr Pérez Monday Checked meds and labs Conferred with RN Reviewed therapy notes Review of Systems General: Fatigue Musculoskeletal: leg pain Objective Exam Vital Signs Vital Signs Date Time Temp Pulse Resp B/P (MAP) Pulse Ox O2 Delivery O2 Flow Rate FiO2 07/31/19 18:00 36.8 107 18 111/72 (85) Room Air 07/31/19 05:02 95 Capillary Refill : General Appearance: No Apparent Distress, WD/WN, Anxious HEENT: PERRL/EOMI, TMs Normal, Normal ENT Inspection, Pharynx Normal Neck: Full Range of Motion, Normal Inspection, Non Tender, Supple, Carotid Bruit Respiratory: Chest Non Tender, Lungs Clear, Normal Breath Sounds, No Accessory Muscle Use, No Respiratory Distress Cardiovascular: Regular Rate, Rhythm, No Edema, No Gallop, No JVD, No Murmur, Normal Peripheral Pulses Gastrointestinal: Normal Bowel Sounds, No Organomegaly, No Pulsatile Mass, Non Tender, Soft Back: Normal Inspection, No CVA Tenderness, No Vertebral Tenderness Extremity: Normal Capillary Refill, Normal Inspection, Normal Range of Motion (except left leg due to edema and recent knee replacement), Non Tender, No Calf Tenderness, No Pedal Edema Neurologic/Psychiatric: Alert, Oriented x3, No Motor/Sensory Deficits, Normal Mood/Affect Skin: Normal Color, Warm/Dry Lymphatic: No Adenopathy Results/Procedures Lab Patient resulted labs reviewed. FIM Transfers Therapy Code Descriptions/Definitions Functional [place] Measure: 0=Not Assessed/NA 4=Minimal Assistance 1=Total Assistance 5=Supervision or Setup 2=Maximal Assistance 6=Modified [place] 3=Moderate Assistance 7=Complete IndependenceSCALE: Activities may be completed with or without assistive devices. 4-Jbffvbvrkb-vagydev completes the activity by him/herself with no assistance from a helper. 5-Set-up or Clean-up Assistance-helper sets up or cleans up; patient completes activity. [place] assists only prior to or following the activity. 4-Supervision or Touching Assistance-helper provides verbal cues and/or touching/steadying and/or contact guard assistance as patient completes activity. Assistance may be provided throughout the activity or intermittently. 3-Partial/Moderate Assistance-helper does LESS THAN HALF the effort. [place] lifts, holds or supports trunk or limbs, but provides less than half the effort. 2-Substantial/Maximal Assistance-helper does MORE THAN HALF the effort. [place] lifts or holds trunk or limbs and provides more than half the effort. 7-Ckdbsigea-evzoub does ALL the effort. Patient does none of the effort to complete the activity. Or, the assistance of 2 or more helpers is required for the patient to complete the activity. If activity was not attempted, code reason: 7-Patient Refused. 9-Not Applicable-not attempted and the patient did not perform the activity before the current illness, exacerbation or injury. 10-Not Attempted due to Environmental Limitations-(lack of equipment, weather restraints, etc.). 88-Not Attempted due to Medical Conditions or Safety Concerns. Roll Left to Right (QC): 6 Sit to Lying (QC): 6 Sit to Stand (QC): 4 (CGA) Chair/Dpa-to-Wiimm Xfer(QC): 6 Bed to/from Chair: 5 Car Transfer (QC): 5 Gait Training Does the Patient Walk?: Yes Distance (FIM): 3=150 ft Distance: 100'x2 Walk 10 feet (QC): 4 (CGA) Walk 50 ft with 2 Turns(QC): 4 (CGA) Walk 150 ft (QC): 4 (SBA) Walking 10ft/uneven surface-QC: 4 Gait Assistive Device: FWW Wheelchair Training Does the Pt Use a Wheelchair?: No Stair Training #of Steps: 1 1 Step (curb) (QC): 3 ([place]) 4 Steps (QC): 88 12 Steps (QC): 88 Stairs: Pattern: Step to Balance Picking up an Object (QC): 6 ADL-Treatment Eating (QC): 6 (per pt report) Oral Hygiene (QC): 5 (Set up at sink) Bathing Location: L Arm, R Arm, L Upper Leg, R Upper Leg, L Lower Leg (including foot), R Lower Leg (including foot), Chest, Abdomen, Buttocks, Perineal Area Shower/Bathe Self (QC): 4 (Pt able to complete all aspects of shower with SBA) Upper Body Dressing (QC): 5 (With set up, pt able to don/doff pullover shirt and bra) Lower Body Dressing (QC): 3 (Pt able to doff lower body clothing without assist. Required assistance threading underwear over left leg due to it getting caught on toes, she was then able to don underwear and pants with SBA during stand.) On/Off Footwear (QC): 3 Toileting Hygiene (QC): 7 Toilet Transfer (QC): 7 Assessment/Plan Assessment and Plan Assess & Plan/Chief Complaint Assessment: s/p left knee replacement POD # 13 Acute left leg DVT Slow recovery HTN HLP Iron def anemia Plan: Pain control OAC IV iron completed IRF Dr Pérez Monday (1) Status post left knee replacement (2) Left leg DVT (3) Hypertension (4) Postoperative anemia due to acute blood loss (5) Iron deficiency (6) Hyperlipemia KINJAL SWEENEY DO Jul 31, 2019 07:44 POS
--- NOTE | 2019-07-31 08:37 | Occupational Ther Daily Note ---
OT Current Status-Daily Note Subjective Pt laying in bed at start of session, agreeable to OT tx this AM. Pt reported her pain in her left knee is "better" but it is still in a lot of pain. Mental Status/Objective Attachments: Other-See Comments (CPM) ADL-Treatment Therapy Code Descriptions/Definitions Functional [place] Measure: 0=Not Assessed/NA 4=Minimal Assistance 1=Total Assistance 5=Supervision or Setup 2=Maximal Assistance 6=Modified [place] 3=Moderate Assistance 7=Complete IndependenceSCALE: Activities may be completed with or without assistive devices. 1-Ggvufkqbjd-fkixrbs completes the activity by him/herself with no assistance from a helper. 5-Set-up or Clean-up Assistance-helper sets up or cleans up; patient completes activity. [place] assists only prior to or following the activity. 4-Supervision or Touching Assistance-helper provides verbal cues and/or touching/steadying and/or contact guard assistance as patient completes activit y. Assistance may be provided throughout the activity or intermittently. 3-Partial/Moderate Assistance-helper does LESS THAN HALF the effort. [place] lifts, holds or supports trunk or limbs, but provides less than half the effort. 2-Substantial/Maximal Assistance-helper does MORE THAN HALF the effort. [place] lifts or holds trunk or limbs and provides more than half the effort. 4-Otrhtlfmd-jtxgap does ALL the effort. Patient does none of the effort to complete the activity. Or, the assistance of 2 or more helpers is required for the patient to complete the activity. If activity was not attempted, code reason: 7-Patient Refused. 9-Not Applicable-not attempted and the patient did not perform the activity before the current illness, exacerbation or injury. 10-Not Attempted due to Environmental Limitations-(lack of equipment, weather restraints, etc.). 88-Not Attempted due to Medical Conditions or Safety Concerns. Shower/Bathe Self (QC): 4 (Pt completed sponge bath this AM. She required supervision during stand for washing buttocks/periarea) Upper Body Dressing (QC): 5 (set up assist) Lower Body Dressing (QC): 4 (Pt able to don/doff pants/underwear with supervision during stand. ) Other Treatment Pt laying in bed, transferred supine to sit with SBA. Pt then ambulated to shower chair using FWW with SBA. Pt completed sponge bath and dressing before ambulating to recliner using FWW. Pt able do don/doff BLE socks without assistance, no QC score given on this date for footwear due to pt only donning socks and not donning shoes. Pt brushed her hair as OT cleaned up shower area. Pt then ambulated to therapy gym using FWW & SBA, requiring 1 rest break about senior care to the gym. In order to increase UE strengthening and functional endurance for tasks, pt completed arm bike x10 mins, min resistance, 1 rest break during task. Pt then ambulated back to room with CGA and min verbal cues to put left heel down and step through with her right foot. Pt required a rest break senior care to her room. Pt then completed toileting, before returning to her bed. Post OT session, pt laying in bed, call light in reach, CPM on left leg and all needs met. Education OT Patient Education: Correct positioning, Energy conservation, Exercise program, Modified ADL techniques, Progress toward Goal/Update tx plan, Purpose of tx/functional activities, Transfer techniques Teaching Recipient: Patient Teaching Methods: Demonstration, Discussion Response to Teaching: Verbalize Understanding, Return Demonstration OT Ammunition Officer Goals Ammunition Officer Goals Time Frame: Aug 09, 2019 Eating (QC): 6 (met) Oral Hygiene (QC): 6 Toileting Hygiene (QC): 6 Shower/Bathe Self (QC): 6 Upper Body Dressing (QC): 6 Lower Body Dressing (QC): 6 On/Off Footwear (QC): 6 Additional Goals: 1-Demonstrate ADL Tasks, 2-Verbalize Understanding, 3- ImproveStrength/Abdoul 1=Demonstrate adherence to instructed precautions during ADL tasks. 2=Patient will verbalize/demonstrate understanding of assistive devices/modifications for ADL. 3=Patient will improve strength/tolerance for activity to enable patient to perform ADL's. OT Education/Plan Problem List/Assessment Assessment: Decreased Activ Tolerance, Decreased UE Strength, Impaired Funct Balance, Impaired I ADL's, Impaired Self-Care Skills Pt demonstrates decreased mobility, ADL functioning, strength, and activity tolerance. Pt to benefit from skilled OT intervention for ADL training, transfers, strengthening, and safety education to increase level of independence and allow safe discharge home. Discharge Recommendations Plan/Recommendations: Continue POC Treatment Plan/Plan of Care Treatment,Training & Education: Yes Patient would benefit from OT for education, treatment and training to promote independence in ADL's, mobility, safety and/or upper extremity function for ADL's. Plan of Care: ADL Retraining, Functional Mobility, Group Exercise/Act as Ind, UE Funct Exercise/Act Treatment Duration: Aug 09, 2019 Frequency: At least 5 of 7 days/Wk (IRF) Estimated Hrs Per Day: 1.5 hours per day Agreement: Yes Rehab Potential: Good Time/GCodes Start Time: 07:55 Stop Time: 09:00 Total Time Billed (hr/min): 65 Billed Treatment Time 1, ADL 3 (50min), EX (15min) JIMBO WORLEY OT Jul 31, 2019 08:37 POS
[2019-07-31] MEDS: SENNA W/DOCUSATE (SENOKOT S) TABLET PO SCH ×2 (09:57→21:22)
[2019-07-31] MEDS: APIXABAN 5 MG (ELIQUIS) TABLET PO SCH ×2 (09:58→21:21)
[2019-07-31] MEDS: oxyCODONE ER 10 MG (OxyCONTIN CR) TAB PO SCH ×2 (09:58→21:21)
[2019-07-31] MEDS: POLYETHYLENE GLYCOL 17 GM (MIRALAX) PACK PO SCH ×2 (09:58→19:54)
[2019-07-31] MEDS: LOSARTAN 100 MG (COZAAR) TABLET PO SCH (09:58)
[2019-07-31] MEDS: DICLOFENAC 1% GEL 100 GM (VOLTAREN) TUBE TOP SCH ×4 (09:58→21:22)
--- NOTE | 2019-07-31 11:00 | Physical Therapy Daily Note ---
PT Daily Note-Current Subjective Patient agrees to PT. Reports 6/10 knee pain today and that knee ROM is limited by pain. Pain Numeric Pain Scale: 6 Location: Left Location Body Site: Knee Pain Description: Ache Mental Status Patient Orientation: Person, Place, Time, Situation Transfers SCALE: Activities may be completed with or without assistive devices. 3-Opmjalvyxj-zlsaree completes the activity by him/herself with no assistance from a helper. 5-Set-up or Clean-up Assistance-helper sets up or cleans up; patient completes activity. [place] assists only prior to or following the activity. 4-Supervision or Touching Assistance-helper provides verbal cues and/or touching/steadying and/or contact guard assistance as patient completes activity. Assistance may be provided throughout the activity or intermittently. 3-Partial/Moderate Assistance-helper does LESS THAN HALF the effort. [place] lifts, holds or supports trunk or limbs, but provides less than half the effort. 2-Substantial/Maximal Assistance-helper does MORE THAN HALF the effort. [place] lifts or holds trunk or limbs and provides more than half the effort. 5-Yrjudysjm-nxftjq does ALL the effort. Patient does none of the effort to complete the activity. Or, the assistance of 2 or more helpers is required for the patient to complete the activity. If activity was not attempted, code reason: 7-Patient Refused. 9-Not Applicable-not attempted and the patient did not perform the activity before the current illness, exacerbation or injury. 10-Not Attempted due to Environmental Limitations-(lack of equipment, weather restraints, etc.). 88-Not Attempted due to Medical Conditions or Safety Concerns. Roll Left & Right (QC): 4 Sit to Lying (QC): 4 Lying to Sitting/Side of Bed(Q: 4 Sit to Stand (QC): 4 SBA for bed mobility and transfer Weight Bearing Right Lower Extremity: Right Weight Bearing/Tolerated Left Lower Extremity: Left Weight Bearing/Tolerated Gait Training Does the Patient Walk?: Yes Distance: 150', 50' x2 Walk 10 feet (QC): 4 Walk 50 ft with 2 Turns(QC): 4 Walk 150 ft (QC): 4 Gait Assistive Device: FWW CGA ambulation; impaired heel strike and persistent knee flexion; large L step length and step to pattern with RLE; able to occasionally correct with frequent cues but returns to previous gait pattern. Exercises Supine Ex: Ankle pumps, Quad Set, Glut sets, Heel Slides, Short Arc Quads, St raight leg raise, Hip abd/add Supine Reps: 10 (AAROM heel slides, SAQ, SLR) NuStep Minutes: 5 NuStep Workload: 4 Assessment Patient ambulated 50' x2 and then 150' during tx session, demonstrating antalgic gait. Patient maintains knee flexion throughout ambulation and weight bears on toe. Ambulates with large L step and step to pattern with R foot. Cues and demonstration provided to take smaller steps with L and complete step through pattern with R, which patient was able to occasionally demonstrate but no consistently. Patient performed supine exercises with assistance for ROM, which was limited by pain. Passive stretching for knee ROM completed, with L flexion measured at 71 deg and ext lacking 8 deg after stretching, compared to R flexion 115 deg. Completed 5 minutes on NuStep within limited ROM to improve mobility in L knee flexion. Patient returned to bed at conclusion of treatment. PT [facility] Goals Halfway Goals PT Halfway Goals Time Frame: Aug 10, 2019 Roll Left & Right (QC): 6 Sit to Lying (QC): 6 Lying-Sitting on Side/Bed(QC): 6 Sit to Stand (QC): 6 Chair/Oxg-pi-Ymliw Xfer(QC): 6 Toilet Transfer (QC): 6 Car Transfer (QC): 6 Does the Patient Walk: Yes Walk 10 feet (QC): 6 Walk 50ft with 2 Turns (QC): 6 Walk 150 ft (QC): 6 Walking 10ft on Uneven Surface: 6 1 Step (curb) (QC): 6 4 Steps (QC): 6 12 Steps (QC): 6 Picking up an Object (QC): 6 Does the Pt use WC or Scooter?: No Type: N/A Type: N/A PT Plan Treatment/Plan Treatment Plan: Continue Plan of Care Treatment Plan: Bed Mobility, Concurrent Therapy, Education, Functional Activity Abdoul, Functional Strength, Group Therapy, Gait, Safety, Therapeutic Exercise, Transfers Treatment Duration: Aug 10, 2019 Frequency: At least 5 of 7 days/Wk (IRF) Estimated Hrs Per Day: 1.5 hours per day Patient and/or Family Agrees t: Yes Safety Risks/Education Patient Education: Gait Training, Disease Process, Safety Issues Teaching Recipient: Patient Teaching Methods: Demonstration, Discussion Response to Teaching: Verbalize Understanding, Return Demonstration Time/GCodes Time In: 1000 Time Out: 1100 Total Billed Treatment Time: 60 Total Billed Treatment 1 visit EX x2 30min GT 15min FA 15min PROSPER SOUSA CONTACT AC[employer] PLANT OPERATOR Jul 31, 2019 11:00 POS
--- NOTE | 2019-07-31 14:55 | Therapy Group Daily Note ---
Therapy Daily Group Note Patient Education Topic Home Safety Exercises LE Seated Exercise, Fine Motor Session Ratio (pt:therapist): 6:2 Goal of Session: Home Safety Strategies, UE/LE Strengthing Goal Met for this Session: Yes Pt Benefit of Group: Contributions to Others, F/U Use of Strategies @Home, Increased Functional Safety, Increased Functional Strength, Improved Cognition, Recognition of Peers, Socialization Other/Notes Pt ambulated to [facility] for OT/PT group. Group consisted of introductions (name, place living, favorite restaurant), socialization, UE/LE seated exercises and home safety. Pt introduced self appropriately and actively listened to peers. Pt was able to remember an exercise and lead group then participated when peers lead an exercise. Pt acknowledged understanding of educational topics by verbalizing own personal story and strategies. After therapy, pt sitting in recliner with call light/phone in reach. All needs met. Start Time: 13:00 Stop Time: 14:10 Total Billed Treatment Time: 70 Total Billed Treatment 1-GRP BRYAN KING Jul 31, 2019 14:55 POS
[2019-07-31 18:00] VITALS: BP 111/72
[2019-07-31] MEDS: MIRTAZAPINE 15 MG (REMERON) TAB PO SCH (21:22)
[2019-08-01 05:59] VITALS: BP 108/68
[2019-08-01] MEDS: ASCORBIC ACID (VIT C) 500 MG TABLET PO SCH (05:59)
[2019-08-01 06:19] LABS: HEMOGLOBIN 10.8 G/DL (11.5-16.0); MEAN PLATELET VOLUME 9.7 FL (7.4-10.4); RED CELL DISTRIBUTION WIDTH 12.1 % (10.0-14.5); WHITE BLOOD COUNT 11.3 10^3/uL (4.3-11.0)
[2019-08-01 07:58] VITALS: BP 112/65
[2019-08-01] MEDS: LOSARTAN 100 MG (COZAAR) TABLET PO SCH (07:59)
[2019-08-01] MEDS: oxyCODONE ER 10 MG (OxyCONTIN CR) TAB PO SCH ×2 (07:59→20:19)
[2019-08-01] MEDS: APIXABAN 5 MG (ELIQUIS) TABLET PO SCH ×2 (07:59→20:19)
[2019-08-01] MEDS: SENNA W/DOCUSATE (SENOKOT S) TABLET PO SCH ×2 (08:00→20:20)
[2019-08-01] MEDS: DICLOFENAC 1% GEL 100 GM (VOLTAREN) TUBE TOP SCH ×4 (08:01→20:21)
--- NOTE | 2019-08-01 08:05 | NUR ---
Dr. Elizabeth to floor. Informed of WBC 11.3
--- NOTE | 2019-08-01 08:13 | Occupational Ther Daily Note ---
OT Current Status-Daily Note Subjective Pt laying in bed with nursing present at start of session. Pt given medications as OT set up bedroom for ADLs. Pt agreeable to OT tx this AM, did not verbalize pain rating. Mental Status/Objective Patient Orientation: Person, Place, Time, Situation ADL-Treatment Therapy Code Descriptions/Definitions Functional [place] Measure: 0=Not Assessed/NA 4=Minimal Assistance 1=Total Assistance 5=Supervision or Setup 2=Maximal Assistance 6=Modified [place] 3=Moderate Assistance 7=Complete IndependenceSCALE: Activities may be completed with or without assistive devices. 7-Ojrrvzvkqm-zizgpju completes the activity by him/herself with no assistance from a helper. 5-Set-up or Clean-up Assistance-helper sets up or cleans up; patient completes activity. [place] assists only prior to or following the activity. 4-Supervision or Touching Assistance-helper provides verbal cues and/or touching/steadying and/or contact guard assistance as patient completes activity. Assistance may be provided throughout the activity or intermittently. 3-Partial/Moderate Assistance-helper does LESS THAN HALF the effort. [place] lifts, holds or supports trunk or limbs, but provides less than half the effort. 2-Substantial/Maximal Assistance-helper does MORE THAN HALF the effort. [place] lifts or holds trunk or limbs and provides more than half the effort. 9-Bugrwwpbi-ebvbgv does ALL the effort. Patient does none of the effort to complete the activity. Or, the assistance of 2 or more helpers is required for the patient to complete the activity. If activity was not attempted, code reason: 7-Patient Refused. 9-Not Applicable-not attempted and the patient did not perform the activity before the current illness, exacerbation or injury. 10-Not Attempted due to Environmental Limitations-(lack of equipment, weather restraints, etc.). 88-Not Attempted due to Medical Conditions or Safety Concerns. Eating (QC): 6 (Per pt report, pt had no difficulty opening containers and eating food.) Oral Hygiene (QC): 4 (SBA standing at sink with FWW. No LOB noted) Bathing Location: L Arm, R Arm, L Upper Leg, R Upper Leg, L Lower Leg (including foot), R Lower Leg (including foot), Chest, Abdomen, Buttocks, Perineal Area Shower/Bathe Self (QC): 4 (pt able to wash all parts without assist, SBA for safety) Upper Body Dressing (QC): 4 (SBA, pt completed task post shower, she stood while donning shirt overhead, noted 1 loss of balance while pulling shirt down. Pt able to self correct balance loss with use of grab bars. ) Lower Body Dressing (QC): 4 (Pt able to thread pants/underwear without a ssistance. 1 loss of balance noted while managing clothing up over hips, she was able to correct balance loss using grab bars.) Toileting Hygiene (QC): 4 (SBA, pt able to complete clothing management and toilet hygiene. ) Toilet Transfer (QC): 4 (SBA during transfer on/off toilet.) Footwear QC: 3 (pt able to doff socks/shoes, required assistance with donning shoe on LLE.) Other Treatment Pt laying in bed, transferred supine to sit with SBA, then ambulated to shower using FWW with SBA. Pt completed shower/dressing at shower chair, then performed oral hygiene at sink, and toileting/toilet transfers. Pt then ambulated to recliner where she completed donning footwear. She completed exercise program with red theraband, including shoulder horizontal abduction, elbow flexion and elbow extension. Nursing present to change pt's bandage, then pt ambulated to therapy gym using FWW, with CGA and min verbal cues to step all the way through with her right foot when taking a step. Pt required 1 rest break about usp to the gym. In order to increase functional endurance with tasks and increase UE strength, pt performed [id number] on arm bike, noted fatigue towards end of task. Pt then took a rest break before performing functional mobility back to her room using FWW. Pt required 1 rest break during return to her room. Once in her room, pt transferred to the bed to lay down with SBA. Post OT session, pt laying in bed, call light in reach and all needs met. Education OT Patient Education: Correct positioning, Energy conservation, Exercise program, Modified ADL techniques, Progress toward Goal/Update tx plan, Purpose of tx/functional activities, Transfer techniques Teaching Recipient: Patient Teaching Methods: Demonstration, Discussion Response to Teaching: Verbalize Understanding, Return Demonstration OT Nursing Home Goals Nursing Home Goals Time Frame: Aug 09, 2019 Eating (QC): 6 (met) Oral Hygiene (QC): 6 (not met) Toileting Hygiene (QC): 6 (not met) Shower/Bathe Self (QC): 6 (not met) Upper Body Dressing (QC): 6 (not met) Lower Body Dressing (QC): 6 (not met) On/Off Footwear (QC): 6 (not met) Additional Goals: 1-Demonstrate ADL Tasks, 2-Verbalize Understanding, 3- ImproveStrength/Abdoul 1=Demonstrate adherence to instructed precautions during ADL tasks. 2=Patient will verbalize/demonstrate understanding of assistive devices/modifications for ADL. 3=Patient will improve strength/tolerance for activity to enable patient to perform ADL's. OT Education/Plan Problem List/Assessment Assessment: Decreased Activ Tolerance, Decreased UE Strength, Impaired Funct Balance, Impaired I ADL's, Impaired Self-Care Skills Pt demonstrates decreased mobility, ADL functioning, strength, and activity tolerance. Pt to benefit from skilled OT intervention for ADL training, transfers, strengthening, and safety education to increase level of independence and allow safe discharge home. Discharge Recommendations Plan/Recommendations: Continue POC Treatment Plan/Plan of Care Treatment,Training & Education: Yes Patient would benefit from OT for education, treatment and training to promote independence in ADL's, mobility, safety and/or upper extremity function for ADL's. Plan of Care: ADL Retraining, Functional Mobility, Group Exercise/Act as Ind, UE Funct Exercise/Act Treatment Duration: Aug 09, 2019 Frequency: At least 5 of 7 days/Wk (IRF) Estimated Hrs Per Day: 1.5 hours per day Agreement: Yes Rehab Potential: Good Time/GCodes Start Time: 08:00 Stop Time: 09:30 Total Time Billed (hr/min): 90 Billed Treatment Time 1, ADL 4, EX 2 JIMBO WORLEY OT Aug 01, 2019 08:13 POS
[2019-08-01] MEDS: POLYETHYLENE GLYCOL 17 GM (MIRALAX) PACK PO SCH ×2 (09:03→19:35)
--- NOTE | 2019-08-01 09:51 | PM&R Progress Note ---
Subjective HPI/CC On Admission Date Seen by Provider: Aug 01, 2019 Time Seen by Provider: 08:15 Subjective/Events-last exam Labs ordered showing Hgb stable, white count of [address] Pérez will see her tomorrow morning at 1100 Getting a discharge date set and that likely will be Monday. Using CPM machine and working with PT. Overall feels much better. Checked meds and labs Conferred with RN Reviewed therapy notes Review of Systems General: Fatigue Objective Exam Vital Signs Vital Signs Date Time Temp Pulse Resp B/P (MAP) Pulse Ox O2 Delivery O2 Flow Rate FiO2 08/01/19 20:20 Room Air 08/01/19 16:34 37.3 105 16 124/77 (93) 97 Capillary Refill : General Appearance: No Apparent Distress, WD/WN, Anxious HEENT: PERRL/EOMI, TMs Normal, Normal ENT Inspection, Pharynx Normal Neck: Full Range of Motion, Normal Inspection, Non Tender, Supple, Carotid Bruit Respiratory: Chest Non Tender, Lungs Clear, Normal Breath Sounds, No Accessory Muscle Use, No Respiratory Distress Cardiovascular: Regular Rate, Rhythm, No Edema, No Gallop, No JVD, No Murmur, Normal Peripheral Pulses Gastrointestinal: Normal Bowel Sounds, No Organomegaly, No Pulsatile Mass, Non Tender, Soft Back: Normal Inspection, No CVA Tenderness, No Vertebral Tenderness Extremity: Normal Capillary Refill, Normal Inspection, Normal Range of Motion (except left leg due to edema and recent knee replacement), Non Tender, No Calf Tenderness, No Pedal Edema Neurologic/Psychiatric: Alert, Oriented x3, No Motor/Sensory Deficits, Normal Mood/Affect Skin: Normal Color, Warm/Dry Lymphatic: No Adenopathy Results/Procedures Lab Laboratory Tests 08/01/19 06:10 Patient resulted labs reviewed. FIM Transfers Therapy Code Descriptions/Definitions Functional [place] Measure: 0=Not Assessed/NA 4=Minimal Assistance 1=Total Assistance 5=Supervision or Setup 2=Maximal Assistance 6=Modified [place] 3=Moderate Assistance 7=Complete IndependenceSCALE: Activities may be completed with or without assistive devices. 4-Pohdhhhrch-ukziufy completes the activity by him/herself with no assistance from a helper. 5-Set-up or Clean-up Assistance-helper sets up or cleans up; patient completes activity. [place] assists only prior to or following the activity. 4-Supervision or Touching Assistance-helper provides verbal cues and/or touching/steadying and/or contact guard assistance as patient completes activity. Assistance may be provided throughout the activity or intermittently. 3-Partial/Moderate Assistance-helper does LESS THAN HALF the effort. [place] lifts, holds or supports trunk or limbs, but provides less than half the effort. 2-Substantial/Maximal Assistance-helper does MORE THAN HALF the effort. [place] lifts or holds trunk or limbs and provides more than half the effort. 1-Binmqgqfi-dldkuy does ALL the effort. Patient does none of the effort to complete the activity. Or, the assistance of 2 or more helpers is required for the patient to complete the activity. If activity was not attempted, code reason: 7-Patient Refused. 9-Not Applicable-not attempted and the patient did not perform the activity before the current illness, exacerbation or injury. 10-Not Attempted due to Environmental Limitations-(lack of equipment, weather restraints, etc.). 88-Not Attempted due to Medical Conditions or Safety Concerns. Roll Left to Right (QC): 4 Sit to Lying (QC): 4 Sit to Stand (QC): 4 Chair/Cln-br-Aifsn Xfer(QC): 6 Bed to/from Chair: 5 Car Transfer (QC): 5 Gait Training Does the Patient Walk?: Yes Distance (FIM): 3=150 ft Distance: 150', 50' x2 Walk 10 feet (QC): 4 Walk 50 ft with 2 Turns(QC): 4 Walk 150 ft (QC): 4 Walking 10ft/uneven surface-QC: 4 Gait Assistive Device: FWW Wheelchair Training Does the Pt Use a Wheelchair?: No Stair Training #of Steps: 1 1 Step (curb) (QC): 3 ([place]) 4 Steps (QC): 88 12 Steps (QC): 88 Stairs: Pattern: Step to Balance Picking up an Object (QC): 6 ADL-Treatment Eating (QC): 6 (Per pt report, pt had no difficulty opening containers and eating food.) Oral Hygiene (QC): 4 (SBA standing at sink with FWW. No LOB noted) Bathing Location: L Arm, R Arm, L Upper Leg, R Upper Leg, L Lower Leg (including foot), R Lower Leg (including foot), Chest, Abdomen, Buttocks, Perineal Area Shower/Bathe Self (QC): 4 (pt able to wash all parts without assist, SBA for safety) Upper Body Dressing (QC): 4 (SBA, pt completed task post shower, she stood while donning shirt overhead, noted 1 loss of balance while pulling shirt down. Pt able to self correct balance loss with use of grab bars. ) Lower Body Dressing (QC): 4 (Pt able to thread pants/underwear without assistance. 1 loss of balance noted while managing clothing up over hips, she was able to correct balance loss using grab bars.) On/Off Footwear (QC): 3 Toileting Hygiene (QC): 4 (SBA, pt able to complete clothing management and toilet hygiene. ) Toilet Transfer (QC): 4 (SBA during transfer on/off toilet.) Assessment/Plan Assessment and Plan Assess & Plan/Chief Complaint Assessment: s/p left knee replacement POD # 14 Acute left leg DVT Slow recovery HTN HLP Iron def anemia Plan: Pain control OAC IV iron completed IRF Dr Pérez Monday (1) Status post left knee replacement (2) Left leg DVT (3) Hypertension (4) Postoperative anemia due to acute blood loss (5) Iron deficiency (6) Hyperlipemia KINJAL SWEENEY DO Aug 01, 2019 09:51 POS
--- NOTE | 2019-08-01 11:01 | Physical Therapy Daily Note ---
PT Daily Note-Current Subjective pt in bed pre-tx agrees to therapy. pt reports no real pain right now she is just sore up in her neck and her L knee. Appearance pt in bed post-tx with CPM set to 75degrees flexion and -5 degrees past extension. Mental Status Patient Orientation: Person, Place, Time, Situation Attachments: SCD's, Polar Pack CPM Transfers SCALE: Activities may be completed with or without assistive devices. 9-Enumswakrc-pqwcrmu completes the activity by him/herself with no assistance from a helper. 5-Set-up or Clean-up Assistance-helper sets up or cleans up; patient completes activity. [place] assists only prior to or following the activity. 4-Supervision or Touching Assistance-helper provides verbal cues and/or touching/steadying and/or contact guard assistance as patient completes activity. Assistance may be provided throughout the activity or intermittently. 3-Partial/Moderate Assistance-helper does LESS THAN HALF the effort. [place] lifts, holds or supports trunk or limbs, but provides less than half the effort. 2-Substantial/Maximal Assistance-helper does MORE THAN HALF the effort. [place] lifts or holds trunk or limbs and provides more than half the effort. 9-Idowzhmtg-yptebh does ALL the effort. Patient does none of the effort to complete the activity. Or, the assistance of 2 or more helpers is required for the patient to complete the activity. If activity was not attempted, code reason: 7-Patient Refused. 9-Not Applicable-not attempted and the patient did not perform the activity before the current illness, exacerbation or injury. 10-Not Attempted due to Environmental Limitations-(lack of equipment, weather restraints, etc.). 88-Not Attempted due to Medical Conditions or Safety Concerns. Sit to Lying (QC): 4 (SBA) Lying to Sitting/Side of Bed(Q: 4 (SBA) Sit to Stand (QC): 4 (SBA) Weight Bearing Right Lower Extremity: Right Weight Bearing/Tolerated Left Lower Extremity: Left Weight Bearing/Tolerated Gait Training Distance: 130'x2 Walk 10 feet (QC): 4 (SBA) Walk 50 ft with 2 Turns(QC): 4 (SBA) Gait Assistive Device: FWW pt demonstrates improved gait this session with improved LLE heel strike and improved L hip extension with increased L knee flexion for swing with an increased step through with the RLE. Wheelchair Training Does the Pt Use a Wheelchair?: No Exercises Supine Ex: Ankle pumps, Quad Set, Glut sets, Heel Slides, Short Arc Quads, Straight leg raise Supine Reps: 15 NuStep Minutes: 15 NuStep Workload: 2 Treatments pt performed functional LE strengthening/ROM exercises, skilled ambulation training, transfer training, bed mobility training, and education. Assessment Current Status: Good Progress pt gait is improved from previous session. Pt continues to c/o stiffness and pain with LLE movement. Slight swelling in the LLE noted this session and upon palpation, the L knee was hot to the touch RN was notified. Pt continues to have limited L knee flexion and lacks TKE PT Automotive Electrical Helper Goals Automotive Electrical Helper Goals PT Automotive Electrical Helper Goals Time Frame: Aug 10, 2019 Roll Left & Right (QC): 6 Sit to Lying (QC): 6 Lying-Sitting on Side/Bed(QC): 6 Sit to Stand (QC): 6 Chair/Gks-sf-Niaal Xfer(QC): 6 Toilet Transfer (QC): 6 Car Transfer (QC): 6 Does the Patient Walk: Yes Walk 10 feet (QC): 6 Walk 50ft with 2 Turns (QC): 6 Walk 150 ft (QC): 6 Walking 10ft on Uneven Surface: 6 1 Step (curb) (QC): 6 4 Steps (QC): 6 12 Steps (QC): 6 Picking up an Object (QC): 6 Does the Pt use WC or Scooter?: No Type: N/A Type: N/A PT Plan Problem List Problem List: Activity Tolerance, Functional Strength, Safety, Balance, Gait, Transfer, Bed Mobility, ROM Treatment/Plan Treatment Plan: Continue Plan of Care Treatment Plan: Bed Mobility, Concurrent Therapy, Education, Functional Activity Abdoul, Functional Strength, Group Therapy, Gait, Safety, Therapeutic Exercise, Transfers Treatment Duration: Aug 10, 2019 Frequency: At least 5 of 7 days/Wk (IRF) Estimated Hrs Per Day: 1.5 hours per day Patient and/or Family Agrees t: Yes Safety Risks/Education Patient Education: Gait Training, Transfer Techniques, Correct Positioning, Safety Issues Teaching Recipient: Patient Teaching Methods: Demonstration, Discussion Response to Teaching: Return Demonstration, Reinforcement Needed Time/GCodes Time In: 1000 Time Out: 1100 Total Billed Treatment Time: 60 Total Billed Treatment 1 visit EX 30' GT 15' FA 15' JAMARI ROTH PT Aug 01, 2019 11:01 POS
--- NOTE | 2019-08-01 11:21 | NUR ---
Reviewed weekly Rehab Team Conference Summary with patient. Patient is in agreement to have family transport her to her orthopedic surgeon for a followup appointment tomorrow, 08/02/19, with results to assist in determining an overall discharge target date from [facility]U. As requested, her spouse brought in her CPM from home so that settings could be re-assessed for current status and progress. DME: As earlier noted, patient returned home after surgery and had all recommended DME. HHC: [facility].
--- NOTE | 2019-08-01 13:18 | NUR ---
Patient to F/U with Dr. Pérez tomorrow, 08/02/19, at 11:00 AM. Addendum: 08/01/19 at 1910 by JESSICA BONDS RN Patient states that her will take her to the appointment.
--- NOTE | 2019-08-01 14:24 | Physical Therapy Daily Note ---
PT Daily Note-Current Subjective pt in bed pre-tx agrees to therapy. Pt with unrated "soreness" but not pain in the L knee. Appearance pt in bed post-tx with CPM set to 68degrees flexion and 2 degrees past extension. with call light, room phone, tray table in reach with all needs met Mental Status Patient Orientation: Person, Place, Time, Situation Attachments: SCD's, Polar Pack Transfers SCALE: Activities may be completed with or without assistive devices. 0-Qgiwwlyafy-yeinpki completes the activity by him/herself with no assistance from a helper. 5-Set-up or Clean-up Assistance-helper sets up or cleans up; patient completes activity. [place] assists only prior to or following the activity. 4-Supervision or Touching Assistance-helper provides verbal cues and/or touching/steadying and/or contact guard assistance as patient completes activity. Assistance may be provided throughout the activity or intermittently. 3-Partial/Moderate Assistance-helper does LESS THAN HALF the effort. [place] lifts, holds or supports trunk or limbs, but provides less than half the effort. 2-Substantial/Maximal Assistance-helper does MORE THAN HALF the effort. [place] lifts or holds trunk or limbs and provides more than half the effort. 3-Bsqpppdcb-uokdso does ALL the effort. Patient does none of the effort to complete the activity. Or, the assistance of 2 or more helpers is required for the patient to complete the activity. If activity was not attempted, code reason: 7-Patient Refused. 9-Not Applicable-not attempted and the patient did not perform the activity before the current illness, exacerbation or injury. 10-Not Attempted due to Environmental Limitations-(lack of equipment, weather restraints, etc.). 88-Not Attempted due to Medical Conditions or Safety Concerns. Sit to Lying (QC): 4 (SBA) Lying to Sitting/Side of Bed(Q: 4 (SBA) Sit to Stand (QC): 4 (SBA) Weight Bearing Right Lower Extremity: Right Weight Bearing/Tolerated Left Lower Extremity: Left Weight Bearing/Tolerated Gait Training Distance: 200' Walk 10 feet (QC): 4 (SBA) Walk 50 ft with 2 Turns(QC): 4 (SBA) Walk 150 ft (QC): 4 (SBA) Gait Assistive Device: FWW pt continues to improve R step through pattern. Pt does not hike with the R LE this session but continues to have decreased Knee flexion on the LLE. Wheelchair Training Does the Pt Use a Wheelchair?: No Exercises Supine Ex: Ankle pumps, Quad Set, Glut sets, Heel Slides, Short Arc Quads, Straight leg raise, Hip abd/add Supine Reps: 15 Treatments pt performed functional LE strengthening, bed mobility training, transfer training, skilled ambulation training, and education. Assessment Current Status: Good Progress Pt continues to improve gait pattern this session with improved gait cycle. Pt resists CPM at first and is not able to minal ROM CPM was set to this morning. This PT will come back in 30 minutes to increase ROM. PT Fpc Goals Fpc Goals PT Pit Manager Goals Time Frame: Aug 10, 2019 Roll Left & Right (QC): 6 Sit to Lying (QC): 6 Lying-Sitting on Side/Bed(QC): 6 Sit to Stand (QC): 6 Chair/Tam-vo-Pnmib Xfer(QC): 6 Toilet Transfer (QC): 6 Car Transfer (QC): 6 Does the Patient Walk: Yes Walk 10 feet (QC): 6 Walk 50ft with 2 Turns (QC): 6 Walk 150 ft (QC): 6 Walking 10ft on Uneven Surface: 6 1 Step (curb) (QC): 6 4 Steps (QC): 6 12 Steps (QC): 6 Picking up an Object (QC): 6 Does the Pt use WC or Scooter?: No Type: N/A Type: N/A PT Plan Problem List Problem List: Activity Tolerance, Functional Strength, Safety, Balance, Gait, Transfer, Bed Mobility, ROM Treatment/Plan Treatment Plan: Continue Plan of Care Treatment Plan: Bed Mobility, Concurrent Therapy, Education, Functional Activity Abdoul, Functional Strength, Group Therapy, Gait, Safety, Therapeutic Exercise, Transfers Treatment Duration: Aug 10, 2019 Frequency: At least 5 of 7 days/Wk (IRF) Estimated Hrs Per Day: 1.5 hours per day Patient and/or Family Agrees t: Yes Safety Risks/Education Patient Education: Gait Training, Transfer Techniques, Correct Positioning, Safety Issues Teaching Recipient: Patient Teaching Methods: Demonstration, Discussion Response to Teaching: Return Demonstration, Reinforcement Needed Time/GCodes Time In: 1330 Time Out: 1400 Total Billed Treatment Time: 30 Total Billed Treatment 1 visit EX 15' GT 15' JAMARI ROTH PT Aug 01, 2019 14:24 POS
--- NOTE | 2019-08-01 14:38 | Physical Therapy Progress Note ---
Therapy Progress Note CPM ROM increased to 75 degrees flexion, 4 degrees past extension. pt resistance but tolerates increase. JAMARI ROTH PT Aug 01, 2019 14:38 POS
[2019-08-01 16:34] VITALS: BP 124/77
[2019-08-01] MEDS: MELATONIN 3 MG TABLET PO PRN (20:19)
[2019-08-01] MEDS: MIRTAZAPINE 15 MG (REMERON) TAB PO SCH (20:19)
[2019-08-02 05:55] VITALS: BP 99/65
[2019-08-02] MEDS: ASCORBIC ACID (VIT C) 500 MG TABLET PO SCH (06:08)
[2019-08-02] MEDS: oxyCODONE ER 10 MG (OxyCONTIN CR) TAB PO SCH ×2 (09:12→21:02)
[2019-08-02] MEDS: APIXABAN 5 MG (ELIQUIS) TABLET PO SCH ×2 (09:12→21:01)
[2019-08-02] MEDS: LOSARTAN 100 MG (COZAAR) TABLET PO SCH (09:47)
--- NOTE | 2019-08-02 09:56 | Physical Therapy Daily Note ---
PT Daily Note-Current Subjective pt in recliner pre-tx agrees to therapy. pt rates pain 5/10 in the LLE this morning. Pt reports she hopes she can go home after her appointment today. Appearance pt in recliner post-tx with and RN in room getting ready to go to Dr appointment. Pt reports increased pain in LLE to RN of 7-8/10. Mental Status Patient Orientation: Person, Place, Time, Situation Transfers SCALE: Activities may be completed with or without assistive devices. 1-Uyzyidwjug-mjfpcle completes the activity by him/herself with no assistance from a helper. 5-Set-up or Clean-up Assistance-helper sets up or cleans up; patient completes activity. [place] assists only prior to or following the activity. 4-Supervision or Touching Assistance-helper provides verbal cues and/or touching/steadying and/or contact guard assistance as patient completes activity. Assistance may be provided throughout the activity or intermittently. 3-Partial/Moderate Assistance-helper does LESS THAN HALF the effort. [place] lifts, holds or supports trunk or limbs, but provides less than half the effort. 2-Substantial/Maximal Assistance-helper does MORE THAN HALF the effort. [place] lifts or holds trunk or limbs and provides more than half the effort. 8-Uuucpqkvh-hdguuk does ALL the effort. Patient does none of the effort to complete the activity. Or, the assistance of 2 or more helpers is required for the patient to complete the activity. If activity was not attempted, code reason: 7-Patient Refused. 9-Not Applicable-not attempted and the patient did not perform the activity before the current illness, exacerbation or injury. 10-Not Attempted due to Environmental Limitations-(lack of equipment, weather restraints, etc.). 88-Not Attempted due to Medical Conditions or Safety Concerns. Roll Left & Right (QC): 7 Sit to Lying (QC): 6 Lying to Sitting/Side of Bed(Q: 6 Sit to Stand (QC): 6 Chair/Ltz-nl-Oduct Xfer(QC): 6 Toilet Transfer (QC): 6 Car Transfer (QC): 5 Weight Bearing Right Lower Extremity: Right Weight Bearing/Tolerated Left Lower Extremity: Left Weight Bearing/Tolerated Gait Training Does the Patient Walk?: Yes Distance: 150'x2 Walk 10 feet (QC): 5 Walk 50 ft with 2 Turns(QC): 5 Walk 150 ft (QC): 5 Walking 10ft/uneven surface-QC: 4 (SBA) Gait Assistive Device: FWW pt continues to limit LLE hip and knee motion during ambulation. Pt continues to switch between a step to and step through gait pattern with a slow velocity. Wheelchair Training Does the Pt Use a Wheelchair?: No Stair Training Stair Training: Handrails/: 2 handrails #of Steps: 4 1 Step (curb) (QC): 4 (SBA) 4 Steps (QC): 4 (CGA) 12 Steps (QC): 88 Stairs: Pattern: Step to pt lacks self confidence on stairs and tries to bend the R arm to the rail to push through her entire R forearm. Balance Picking up an Object (QC): 4 (SBA) Exercises Supine Ex: Ankle pumps, Quad Set, Glut sets Supine Reps: 15 Seated Therapy Exercises: Ankle pumps, Hip flexion, Hamstring Curls Seated Reps: 15 NuStep Minutes: 15 NuStep Workload: 2 Treatments pt performed bed mobility training, transfer training, skilled ambulation training, step training, functional LE strengthening exercise, and education. Assessment Current Status: Fair Progress Pt was ambulating with a more normal gait pattern through the session with step through with the RLE and motion in the hip and knee in the LLE. When came to pick pt up the gait pattern appeared to regress to a step to pattern and the LLE motion decreased. Pt today has decreased L knee extension and did not minal attempt at LLE sag exercise to gain extension. PT Saddle Cutter Goals Shelter Goals PT Shelter Goals Time Frame: Aug 10, 2019 Roll Left & Right (QC): 6 Sit to Lying (QC): 6 Lying-Sitting on Side/Bed(QC): 6 Sit to Stand (QC): 6 Chair/Ite-dj-Nospa Xfer(QC): 6 Toilet Transfer (QC): 6 Car Transfer (QC): 6 Does the Patient Walk: Yes Walk 10 feet (QC): 6 Walk 50ft with 2 Turns (QC): 6 Walk 150 ft (QC): 6 Walking 10ft on Uneven Surface: 6 1 Step (curb) (QC): 6 4 Steps (QC): 6 12 Steps (QC): 6 Picking up an Object (QC): 6 Does the Pt use WC or Scooter?: No Type: N/A Type: N/A PT Plan Problem List Problem List: Activity Tolerance, Functional Strength, Safety, Balance, Gait, Transfer, Bed Mobility, ROM Treatment/Plan Treatment Plan: Continue Plan of Care Treatment Plan: Bed Mobility, Concurrent Therapy, Education, Functional Activity Abdoul, Functional Strength, Group Therapy, Gait, Safety, Therapeutic Exercise, Transfers Treatment Duration: Aug 10, 2019 Frequency: At least 5 of 7 days/Wk (IRF) Estimated Hrs Per Day: 1.5 hours per day Patient and/or Family Agrees t: Yes Safety Risks/Education Patient Education: Gait Training, Transfer Techniques, Steps, Correct Positioning, Safety Issues Teaching Recipient: Patient Teaching Methods: Demonstration, Discussion Response to Teaching: Return Demonstration, Reinforcement Needed Time/GCodes Time In: 0900 Time Out: 1000 Total Billed Treatment Time: 60 Total Billed Treatment 1 visit FA 45' GT 15' JAMARI ROTH PT Aug 02, 2019 09:56 POS
--- NOTE | 2019-08-02 09:59 | NUR ---
Pt left per w/c accomp by , & PCT to go to appt w Dr. Pérez, orthopedic surgeon. Pt requested pain meds prior to departure.
[2019-08-02] MEDS: POLYETHYLENE GLYCOL 17 GM (MIRALAX) PACK PO SCH ×2 (10:00→20:56)
[2019-08-02] MEDS: DICLOFENAC 1% GEL 100 GM (VOLTAREN) TUBE TOP SCH ×4 (10:00→21:01)
[2019-08-02] MEDS: SENNA W/DOCUSATE (SENOKOT S) TABLET PO SCH ×2 (10:00→21:01)
--- NOTE | 2019-08-02 10:16 | PM&R Progress Note ---
Subjective HPI/CC On Admission Date Seen by Provider: Aug 02, 2019 Time Seen by Provider: 08:30 Subjective/Events-last exam Incision looks good Dr. Pérez will see her at 11 Pain pill will be given at 10 oclock Melatonin helped her sleep last night Bowels are moving Checked meds and labs Conferred with RN Reviewed therapy notes Review of Systems General: Fatigue Musculoskeletal: leg pain Objective Exam Vital Signs Vital Signs Date Time Temp Pulse Resp B/P (MAP) Pulse Ox O2 Delivery O2 Flow Rate FiO2 08/02/19 16:33 38.2 113 14 104/71 (82) 96 Room Air Capillary Refill : General Appearance: No Apparent Distress, WD/WN, Anxious HEENT: PERRL/EOMI, TMs Normal, Normal ENT Inspection, Pharynx Normal Neck: Full Range of Motion, Normal Inspection, Non Tender, Supple, Carotid Bruit Respiratory: Chest Non Tender, Lungs Clear, Normal Breath Sounds, No Accessory Muscle Use, No Respiratory Distress Cardiovascular: Regular Rate, Rhythm, No Edema, No Gallop, No JVD, No Murmur, Normal Peripheral Pulses Gastrointestinal: Normal Bowel Sounds, No Organomegaly, No Pulsatile Mass, Non Tender, Soft Back: Normal Inspection, No CVA Tenderness, No Vertebral Tenderness Extremity: Normal Capillary Refill, Normal Inspection, Normal Range of Motion (except left leg due to edema and recent knee replacement), Non Tender, No Calf Tenderness, No Pedal Edema Neurologic/Psychiatric: Alert, Oriented x3, No Motor/Sensory Deficits, Normal Mood/Affect Skin: Normal Color, Warm/Dry Lymphatic: No Adenopathy Results/Procedures Lab Patient resulted labs reviewed. FIM Transfers Therapy Code Descriptions/Definitions Functional [place] Measure: 0=Not Assessed/NA 4=Minimal Assistance 1=Total Assistance 5=Supervision or Setup 2=Maximal Assistance 6=Modified [place] 3=Moderate Assistance 7=Complete IndependenceSCALE: Activities may be completed with or without assistive devices. 4-Jejyzlwczs-dsquxle completes the activity by him/herself with no assistance from a helper. 5-Set-up or Clean-up Assistance-helper sets up or cleans up; patient completes activity. [place] assists only prior to or following the activity. 4-Supervision or Touching Assistance-helper provides verbal cues and/or touching/steadying and/or contact guard assistance as patient completes activity. Assistance may be provided throughout the activity or intermittently. 3-Partial/Moderate Assistance-helper does LESS THAN HALF the effort. [place] lifts, holds or supports trunk or limbs, but provides less than half the effort. 2-Substantial/Maximal Assistance-helper does MORE THAN HALF the effort. [place] lifts or holds trunk or limbs and provides more than half the effort. 4-Ilcttsktj-zlljsm does ALL the effort. Patient does none of the effort to complete the activity. Or, the assistance of 2 or more helpers is required for the patient to complete the activity. If activity was not attempted, code reason: 7-Patient Refused. 9-Not Applicable-not attempted and the patient did not perform the activity before the current illness, exacerbation or injury. 10-Not Attempted due to Environmental Limitations-(lack of equipment, weather restraints, etc.). 88-Not Attempted due to Medical Conditions or Safety Concerns. Roll Left to Right (QC): 7 Sit to Lying (QC): 6 Sit to Stand (QC): 6 Chair/Sxh-ix-Agajr Xfer(QC): 6 Bed to/from Chair: 5 Car Transfer (QC): 5 Gait Training Does the Patient Walk?: Yes Distance (FIM): 3=150 ft Distance: 150'x2 Walk 10 feet (QC): 5 Walk 50 ft with 2 Turns(QC): 5 Walk 150 ft (QC): 5 Walking 10ft/uneven surface-QC: 4 (SBA) Gait Assistive Device: FWW Wheelchair Training Does the Pt Use a Wheelchair?: No Stair Training Stair Training: Handrails/: 2 handrails #of Steps: 4 1 Step (curb) (QC): 4 (SBA) 4 Steps (QC): 4 (CGA) 12 Steps (QC): 88 Stairs: Pattern: Step to Balance Picking up an Object (QC): 4 (SBA) ADL-Treatment Eating (QC): 6 (Per pt report, pt had no difficulty opening containers and eating food.) Oral Hygiene (QC): 4 (SBA standing at sink with FWW. No LOB noted) Bathing Location: L Arm, R Arm, L Upper Leg, R Upper Leg, L Lower Leg (including foot), R Lower Leg (including foot), Chest, Abdomen, Buttocks, Perineal Area Shower/Bathe Self (QC): 4 (pt able to wash all parts without assist, SBA for safety) Upper Body Dressing (QC): 4 (SBA, pt completed task post shower, she stood while donning shirt overhead, noted 1 loss of balance while pulling shirt down. Pt able to self correct balance loss with use of grab bars. ) Lower Body Dressing (QC): 4 (Pt able to thread pants/underwear without assistance. 1 loss of balance noted while managing clothing up over hips, she was able to correct balance loss using grab bars.) On/Off Footwear (QC): 3 Toileting Hygiene (QC): 4 (SBA, pt able to complete clothing management and toilet hygiene. ) Toilet Transfer (QC): 4 (SBA during transfer on/off toilet.) Assessment/Plan Assessment and Plan Assess & Plan/Chief Complaint Assessment: s/p left knee replacement POD # 15 Acute left leg DVT Slow recovery HTN HLP Iron def anemia Plan: Pain control OAC IV iron completed IRF Dr Pérez today 1100 (1) Status post left knee replacement (2) Left leg DVT (3) Hypertension (4) Postoperative anemia due to acute blood loss (5) Iron deficiency (6) Hyperlipemia KINJAL SWEENEY DO Aug 02, 2019 10:16 POS
--- NOTE | 2019-08-02 12:53 | Occupational Ther Daily Note ---
OT Current Status-Daily Note Subjective Pt in bed, agrees to therapy. Pt reports 4/10 pain in left LE. Pt states she hopes to discharge today. ADL-Treatment Supine to sit without assist. Gait to restroom with FWW. Pt transferred to walk in shower with supervision. [place] clothing without assist. Pt completed seated bathing using hand held shower. Able to wash all areas after set up. Pt donned pullover shirt with set up. Pt able to thread bilateral LE into underwear and pants after set up. Stood with good balance during pant hike. Pt donned socks and shoes with set up. Used long handled shoe horn to don left shoe. Pt combed hair independently. Therapy Code Descriptions/Definitions Functional [place] Measure: 0=Not Assessed/NA 4=Minimal Assistance 1=Total Assistance 5=Supervision or Setup 2=Maximal Assistance 6=Modified [place] 3=Moderate Assistance 7=Complete IndependenceSCALE: Activities may be completed with or without assistive devices. 2-Ilrwmuegwd-umrgjuy completes the activity by him/herself with no assistance from a helper. 5-Set-up or Clean-up Assistance-helper sets up or cleans up; patient completes activity. [place] assists only prior to or following the activity. 4-Supervision or Touching Assistance-helper provides verbal cues and/or touching/steadying and/or contact guard assistance as patient completes activity. Assistance may be provided throughout the activity or intermittently. 3-Partial/Moderate Assistance-helper does LESS THAN HALF the effort. [place] lifts, holds or supports trunk or limbs, but provides less than half the effort. 2-Substantial/Maximal Assistance-helper does MORE THAN HALF the effort. [place] lifts or holds trunk or limbs and provides more than half the effort. 6-Ouypthywe-chvgsz does ALL the effort. Patient does none of the effort to complete the activity. Or, the assistance of 2 or more helpers is required for the patient to complete the activity. If activity was not attempted, code reason: 7-Patient Refused. 9-Not Applicable-not attempted and the patient did not perform the activity before the current illness, exacerbation or injury. 10-Not Attempted due to Environmental Limitations-(lack of equipment, weather restraints, etc.). 88-Not Attempted due to Medical Conditions or Safety Concerns. Shower/Bathe Self (QC): 5 Upper Body Dressing (QC): 5 Lower Body Dressing (QC): 5 Other Treatment Pt completed bilateral UE exercises to increase strength needed for ADLs and transfers. Pt performed shoulder flexion, abduction, biceps curls, and triceps extension exercises x15 reps with moderate resistance (red) theraband. Rest breaks taken between exercises. Occasional cues required for proper exercise ruben hnique. Pt sitting in chair with needs met after session. OT Senior Living Goals Molded Grid And Parts Inspector Goals Time Frame: Aug 09, 2019 Eating (QC): 6 (met) Oral Hygiene (QC): 6 (not met) Toileting Hygiene (QC): 6 (not met) Shower/Bathe Self (QC): 6 (not met) Upper Body Dressing (QC): 6 (not met) Lower Body Dressing (QC): 6 (not met) On/Off Footwear (QC): 6 (not met) Additional Goals: 1-Demonstrate ADL Tasks, 2-Verbalize Understanding, 3- ImproveStrength/Abdoul 1=Demonstrate adherence to instructed precautions during ADL tasks. 2=Patient will verbalize/demonstrate understanding of assistive devices/modifications for ADL. 3=Patient will improve strength/tolerance for activity to enable patient to perform ADL's. OT Education/Plan Problem List/Assessment Pt demonstrates decreased mobility, ADL functioning, strength, and activity tolerance. Pt to benefit from skilled OT intervention for ADL training, transf ers, strengthening, and safety education to increase level of independence and allow safe discharge home. Discharge Recommendations Plan/Recommendations: Continue POC Treatment Plan/Plan of Care Patient would benefit from OT for education, treatment and training to promote independence in ADL's, mobility, safety and/or upper extremity function for ADL's. Plan of Care: ADL Retraining, Functional Mobility, Group Exercise/Act as Ind, UE Funct Exercise/Act Treatment Duration: Aug 09, 2019 Frequency: At least 5 of 7 days/Wk (IRF) Estimated Hrs Per Day: 1.5 hours per day Agreement: Yes Rehab Potential: Good Time/GCodes Start Time: 08:00 Stop Time: 09:00 Total Time Billed (hr/min): 60 Billed Treatment Time 1 visit, ADLx3(40minutes), EX(20minutes) SID CACERES OT Aug 02, 2019 12:53 POS
--- NOTE | 2019-08-02 14:23 | Occupational Ther Daily Note ---
OT Current Status-Daily Note Subjective Pt in bed, agrees to treatment. Pt reports 5/10 pain in left knee. ADL-Treatment Therapy Code Descriptions/Definitions Functional [place] Measure: 0=Not Assessed/NA 4=Minimal Assistance 1=Total Assistance 5=Supervision or Setup 2=Maximal Assistance 6=Modified [place] 3=Moderate Assistance 7=Complete IndependenceSCALE: Activities may be completed with or without assistive devices. 2-Caeihtfiwu-djnlmof completes the activity by him/herself with no assistance from a helper. 5-Set-up or Clean-up Assistance-helper sets up or cleans up; patient completes activity. [place] assists only prior to or following the activity. 4-Supervision or Touching Assistance-helper provides verbal cues and/or to uching/steadying and/or contact guard assistance as patient completes activity. Assistance may be provided throughout the activity or intermittently. 3-Partial/Moderate Assistance-helper does LESS THAN HALF the effort. [place] lifts, holds or supports trunk or limbs, but provides less than half the effort. 2-Substantial/Maximal Assistance-helper does MORE THAN HALF the effort. [place] lifts or holds trunk or limbs and provides more than half the effort. 8-Bpqvkqibl-yvemvs does ALL the effort. Patient does none of the effort to complete the activity. Or, the assistance of 2 or more helpers is required for the patient to complete the activity. If activity was not attempted, code reason: 7-Patient Refused. 9-Not Applicable-not attempted and the patient did not perform the activity before the current illness, exacerbation or injury. 10-Not Attempted due to Environmental Limitations-(lack of equipment, weather restraints, etc.). 88-Not Attempted due to Medical Conditions or Safety Concerns. Other Treatment Pt supine to sit without assist. Pt donned socks with set up. Sit to stand without assist. Gait to therapy gym with FWW, slow pace. Arm bike [id number] to increase overall strength and activity tolerance needed for functional task completion. Pt completed task with minimal resistance and slow pace. No rest breaks needed. Pt performed sit to stand x5 times to increase strength and safety for transfers. Pt returned to room, transferred to bed without assist. Pt resting in bed with CPM and polar pack in place. All needs met. OT Toll Line Mechanic Goals [place] Goals Time Frame: Aug 09, 2019 Eating (QC): 6 (met) Oral Hygiene (QC): 6 (not met) Toileting Hygiene (QC): 6 (not met) Shower/Bathe Self (QC): 6 (not met) Upper Body Dressing (QC): 6 (not met) Lower Body Dressing (QC): 6 (not met) On/Off Footwear (QC): 6 (not met) Additional Goals: 1-Demonstrate ADL Tasks, 2-Verbalize Understanding, 3-ImproveStrength/Abdoul 1=Demonstrate adherence to instructed precautions during ADL tasks. 2=Patient will verbalize/demonstrate understanding of assistive devices/modifications for ADL. 3=Patient will improve strength/tolerance for activity to enable patient to perform ADL's. OT Education/Plan Problem List/Assessment Pt demonstrates decreased mobility, ADL functioning, strength, and activity tolerance. Pt to benefit from skilled OT intervention for ADL training, transfers, strengthening, and safety education to increase level of independence and allow safe discharge home. Discharge Recommendations Plan/Recommendations: Continue POC Treatment Plan/Plan of Care Patient would benefit from OT for education, treatment and training to promote independence in ADL's, mobility, safety and/or upper extremity function for ADL's. Plan of Care: ADL Retraining, Functional Mobility, Group Exercise/Act as Ind, UE Funct Exercise/Act Treatment Duration: Aug 09, 2019 Frequency: At least 5 of 7 days/Wk (IRF) Estimated Hrs Per Day: 1.5 hours per day Agreement: Yes Rehab Potential: Good Time/GCodes Start Time: 13:30 Stop Time: 14:00 Total Time Billed (hr/min): 30 Billed Treatment Time 1 visit, EX(20minutes), FA(10minutes) SID CACERES OT Aug 02, 2019 14:23 POS
--- NOTE | 2019-08-02 14:32 | Physical Therapy Daily Note ---
PT Daily Note-Current Subjective pt in bed pre-tx agrees to therapy at this time. Pt reports she gave info from appt to RN will check with RN Appearance pt in bed post-tx with CPM set to 75 degrees flexion and 3 degrees past extension. Mental Status Patient Orientation: Person, Place, Time, Situation Transfers SCALE: Activities may be completed with or without assistive devices. 5-Lkyvebctsp-dzeysua completes the activity by him/herself with no assistance from a helper. 5-Set-up or Clean-up Assistance-helper sets up or cleans up; patient completes activity. [place] assists only prior to or following the activity. 4-Supervision or Touching Assistance-helper provides verbal cues and/or touching/steadying and/or contact guard assistance as patient completes act ivity. Assistance may be provided throughout the activity or intermittently. 3-Partial/Moderate Assistance-helper does LESS THAN HALF the effort. [place] lifts, holds or supports trunk or limbs, but provides less than half the effort. 2-Substantial/Maximal Assistance-helper does MORE THAN HALF the effort. [place] lifts or holds trunk or limbs and provides more than half the effort. 3-Jsbpzyboe-bovvss does ALL the effort. Patient does none of the effort to complete the activity. Or, the assistance of 2 or more helpers is required for the patient to complete the activity. If activity was not attempted, code reason: 7-Patient Refused. 9-Not Applicable-not attempted and the patient did not perform the activity before the current illness, exacerbation or injury. 10-Not Attempted due to Environmental Limitations-(lack of equipment, weather restraints, etc.). 88-Not Attempted due to Medical Conditions or Safety Concerns. Sit to Lying (QC): 6 Lying to Sitting/Side of Bed(Q: 6 Sit to Stand (QC): 6 Weight Bearing Right Lower Extremity: Right Weight Bearing/Tolerated Left Lower Extremity: Left Weight Bearing/Tolerated Gait Training Distance: 200' Walk 10 feet (QC): 4 Walk 50 ft with 2 Turns(QC): 4 Walk 150 ft (QC): 4 Gait Assistive Device: FWW pt continues to ambulate slowly with poor mechanics and poor gait pattern without motion in the LLE. Treatments pt performed bed mobility training, transfer training, skilled ambulation training, and education. Assessment Current Status: Poor Progress pt with mod-max VC's, continues to not ambulate with motion in the Knee or hip and is resistant to exercises to increase ROM. PT Care Home Goals Care Home Goals PT Care Home Goals Time Frame: Aug 10, 2019 Roll Left & Right (QC): 6 Sit to Lying (QC): 6 Lying-Sitting on Side/Bed(QC): 6 Sit to Stand (QC): 6 Chair/Nnb-zm-Ifhua Xfer(QC): 6 Toilet Transfer (QC): 6 Car Transfer (QC): 6 Does the Patient Walk: Yes Walk 10 feet (QC): 6 Walk 50ft with 2 Turns (QC): 6 Walk 150 ft (QC): 6 Walking 10ft on Uneven Surface: 6 1 Step (curb) (QC): 6 4 Steps (QC): 6 12 Steps (QC): 6 Picking up an Object (QC): 6 Does the Pt use WC or Scooter?: No Type: N/A Type: N/A PT Plan Problem List Problem List: Activity Tolerance, Functional Strength, Safety, Balance, Gait, Transfer, Bed Mobility, ROM Treatment/Plan Treatment Plan: Continue Plan of Care Treatment Plan: Bed Mobility, Concurrent Therapy, Education, Functional Activity Abdoul, Functional Strength, Group Therapy, Gait, Safety, Therapeutic Exercise, Transfers Treatment Duration: Aug 10, 2019 Frequency: At least 5 of 7 days/Wk (IRF) Estimated Hrs Per Day: 1.5 hours per day Patient and/or Family Agrees t: Yes Safety Risks/Education Patient Education: Gait Training, Transfer Techniques, Correct Positioning, Safety Issues Teaching Recipient: Patient Teaching Methods: Demonstration, Discussion Response to Teaching: Return Demonstration, Reinforcement Needed Time/GCodes Time In: 1300 Time Out: 1330 Total Billed Treatment Time: 30 Total Billed Treatment 1 visit GT 30' JAMARI ROTH PT Aug 02, 2019 14:32 POS
--- NOTE | 2019-08-02 15:22 | NUR ---
Reviewed for updates after patient outing with ortho surgeon appointment. If patient should discharge this weekend, [facility] will be resumed. Followup Monday for any required interventions.
[2019-08-02 16:33] VITALS: BP 104/71
[2019-08-02] MEDS: MIRTAZAPINE 15 MG (REMERON) TAB PO SCH (21:02)
[2019-08-03 06:00] VITALS: BP 119/74
--- NOTE | 2019-08-03 07:00 | NUR ---
DR SWEENEY NOTIFIED PT C/O PAIN ET WEAKNESS WITH [place] FEET, NO REDNESS OR SWELLING NOTED.CONT. TO MONITOR PT PER DR JACOBO
[2019-08-03] MEDS: ASCORBIC ACID (VIT C) 500 MG TABLET PO SCH (07:36)
[2019-08-03] MEDS: oxyCODONE ER 10 MG (OxyCONTIN CR) TAB PO SCH (08:51)
[2019-08-03] MEDS: APIXABAN 5 MG (ELIQUIS) TABLET PO SCH (08:51)
[2019-08-03] MEDS: LOSARTAN 100 MG (COZAAR) TABLET PO SCH (08:51)
[2019-08-03] MEDS: SENNA W/DOCUSATE (SENOKOT S) TABLET PO SCH (08:52)
[2019-08-03] MEDS: DICLOFENAC 1% GEL 100 GM (VOLTAREN) TUBE TOP SCH ×2 (08:53→13:30)
[2019-08-03] MEDS: POLYETHYLENE GLYCOL 17 GM (MIRALAX) PACK PO SCH (08:55)
[2019-08-03] MEDS ORDERED: OXC5T PO (11:11)
[2019-08-03] MEDS ORDERED: OXC10TCR PO (11:11)
[2019-08-03] MEDS ORDERED: DICL100G18 TOP (11:11)
[2019-08-03] MEDS ORDERED: APIX5TAB PO (11:11)
[2019-08-03] MEDS ORDERED: MIRT-47 PO (11:11)
--- NOTE | 2019-08-03 11:13 | D/C HH Face to Face Order ---
D/C Face to Face Orders Instructions for Patient [facility], Patient Instructions/FollowUp: Dr Pérez [address] Elizabeth or PCP in 2 weeks Polar ice as ordered by Dr Pérez Physician to follow Patient: Dr Elizabeth Discharge Diet for Home: No Restrictions Patient Problems: Left knee replacement slow recovery Acute DVT left leg Goals for Patient: Return to independent living Patient Data-Allergies,Ht & Wt Patient Allergies: Coded Allergies: No Known Drug Allergies (Unverified , 12/16/14) Home Health Need/Face to Face Date of Face to Face: Aug 03, 2019 Clinical Findings: Instability, Muscle weakness, Pain with ambulation, Unsteady gait I have seen Pt tcbh-lj-plrs: Yes Discharged To: Home Diagnosis/Conditions: Left knee replacement slow recovery Acute DVT left leg Patient is Homebound due to: [place] fall risk due to instabilty, Muscle weakness, Pain w/ambulation Homebound Status Due to the above stated illness, injury or surgical procedure (medical condition or diagnosis) and associated clinical findings, the patient is homebound because of his/her inability to leave home except with aid of a supportive device and/or person AND leaving the home requires a considerable and taxing effort or is medically contraindicated. Pt req the following assistanc: Walker Home Health Nursing Orders Home Health Services Order: Nursing Services, Rehab Assistant-Evaluate & Treat, Physical Therapy-Evaluate & Treat Certify Stmt I certify that this patient is under my care and that I, a nurse practitioner or a physician; a engineer third assistant working with me, had a face to face encounter that - meets the physician face to face encounter requirements with this patient as dated. KINJAL ELIZABETH DO Aug 03, 2019 11:13 POS
--- NOTE | 2019-08-03 11:14 | Discharge Summary ---
Diagnosis/Chief Complaint Date of Admission Jul 26, 2019 at 12:50 Date of Discharge Discharge Date: Aug 03, 2019 Discharge Diagnosis Assessment: s/p left knee replacement POD # 16 Acute left leg DVT Slow recovery HTN HLP Iron def anemia Plan: Pain control OAC IV iron completed IRF Dr Pérez 2 weeks (1) Status post left knee replacement (2) Left leg DVT (3) Hypertension (4) Postoperative anemia due to acute blood loss (5) Iron deficiency (6) Hyperlipemia Discharge Summary Discharge Physical Examination Allergies: Coded Allergies: No Known Drug Allergies (Unverified , 12/16/14) Vitals & I&Os Vital Signs Date Time Temp Pulse Resp B/P (MAP) Pulse Ox O2 Delivery O2 Flow Rate FiO2 08/03/19 09:00 Room Air 08/03/19 06:00 37.0 112 20 119/74 (89) 97 General Appearance: Alert, Oriented X3, Cooperative Respiratory: Clear to Auscultation Cardiovascular: Regular Rate Neuro: Normal Speech, Strength at 5/5 X4 Ext Psych/Mental Status: Mental Status NL, Mood NL Hospital Course Was the Problem List Reviewed?: Yes Hospital course: Patient had an uncomplicated course in IRF for 9 days after [place] [facility] [place] acute DVT and severe pain with edema with slow recovery and in need of intensive rehab in order to regain enough function to return home to live independently. Patient tolerated the OAC well along with long acting Oxycontin with rapid acting Oxycodone and bowel regained normal function after multiple laxatives given. Tylenol was DC due to mild elevation of LFT's and statin was also held for the same reason. Patient was able to navigate with walker and ambulate and regained ADL's and was able to DC home with close f/u with Dr Pérez who she saw yesterday on a daypass and he removed mis and recommended polar ice and PT. Labs (last 24 hrs) Laboratory Tests 07/27/19 05:45: White Blood Count 7.7, Red Blood Count 3.20L, Hemoglobin 9.6L, Hematocrit 31L, Mean Corpuscular Volume 95, Mean Corpuscular Hemoglobin 30, Mean Corpuscular Hemoglobin Concent 32, Red Cell Distribution Width 12.1, Platelet Count 514H, Mean Platelet Volume 9.8, Neutrophils (%) (Auto) 62, Lymphocytes (%) (Auto) 22, Monocytes (%) (Auto) 10, Eosinophils (%) (Auto) 5, Basophils (%) (Auto) 1, Neutrophils # (Auto) 4.8, Lymphocytes # (Auto) 1.7, Monocytes # (Auto) 0.7, Eosinophils # (Auto) 0.4H, Basophils # (Auto) 0.1, Sodium Level 139, Potassium Level 4.1, Chloride Level 103, Carbon Dioxide Level 25, Anion Gap 11, Blood Urea Nitrogen 13, Creatinine 0.74, Estimat Glomerular Filtration Rate > 60, BUN/Creatinine Ratio 18, Glucose Level 90, Calcium Level 9.6, Corrected Calcium 10.0, Total Bilirubin 0.7, Aspartate Amino Transf (AST/SGOT) 28, Alanine Aminotransferase (ALT/SGPT) 54, Alkaline Phosphatase 113, Total Protein 6.8, Albumin 3.5 07/29/19 04:40: White Blood Count 7.5, Red Blood Count 3.29L, Hemoglobin 9.9L, Hematocrit 32L, Mean Corpuscular Volume 96, Mean Corpuscular Hemoglobin 30, Mean Corpuscular Hemoglobin Concent 31L, Red Cell Distribution Width 12.3, Platelet Count 612H, Mean Platelet Volume 9.7, Neutrophils (%) (Auto) 63, Lymphocytes (%) (Auto) 23, Monocytes (%) (Auto) 10, Eosinophils (%) (Auto) 4, Basophils (%) (Auto) 1, Neutrophils # (Auto) 4.7, Lymphocytes # (Auto) 1.7, Monocytes # (Auto) 0.7, Eosinophils # (Auto) 0.3, Basophils # (Auto) 0.1 07/29/19 04:45: Sodium Level 138, Potassium Level 4.1, Chloride Level 103, Carbon Dioxide Level 26, Anion Gap 9, Blood Urea Nitrogen 18, Creatinine 0.82, Estimat Glomerular Filtration Rate > 60, BUN/Creatinine Ratio 22, Glucose Level 92, Calcium Level 9.8, Corrected Calcium 10.0, Total Bilirubin 0.6, Aspartate Amino Transf (AST/SGOT) 23, Alanine Aminotransferase (ALT/SGPT) 38, Alkaline Phosphatase 111, Total Protein 7.2, Albumin 3.7 08/01/19 06:10: White Blood Count 11.3H, Red Blood Count 3.51L, Hemoglobin 10.8L, Hematocrit 34L , Mean Corpuscular Volume 97, Mean Corpuscular Hemoglobin 31, Mean Corpuscular Hemoglobin Concent 32, Red Cell Distribution Width 12.1, Platelet Count 673H, Mean Platelet Volume 9.7 Pending Labs Laboratory Tests 07/27/19 05:45: White Blood Count 7.7, Red Blood Count 3.20, Hemoglobin 9.6, Hematocrit 31, Mean Corpuscular Volume 95, Mean Corpuscular Hemoglobin 30, Mean Corpuscular Hemoglobin Concent 32, Red Cell Distribution Width 12.1, Platelet Count 514, Mean Platelet Volume 9.8, Neutrophils (%) (Auto) 62, Lymphocytes (%) (Auto) 22, Monocytes (%) (Auto) 10, Eosinophils (%) (Auto) 5, Basophils (%) (Auto) 1, Neutrophils # (Auto) 4.8, Lymphocytes # (Auto) 1.7, Monocytes # (Auto) 0.7, Eosinophils # (Auto) 0.4, Basophils # (Auto) 0.1, Sodium Level 139, Potassium Level 4.1, Chloride Level 103, Carbon Dioxide Level 25, Anion Gap 11, Blood Urea Nitrogen 13, Creatinine 0.74, Estimat Glomerular Filtration Rate > 60, BUN/Creatinine Ratio 18, Glucose Level 90, Calcium Level 9.6, Corrected Calcium 10.0, Total Bilirubin 0.7, Aspartate Amino Transf (AST/SGOT) 28, Alanine Aminotransferase (ALT/SGPT) 54, Alkaline Phosphatase 113, Total Protein 6.8, Albumin 3.5 07/29/19 04:40: White Blood Count 7.5, Red Blood Count 3.29, Hemoglobin 9.9, Hematocrit 32, Mean Corpuscular Volume 96, Mean Corpuscular Hemoglobin 30, Mean Corpuscular Hemoglobin Concent 31, Red Cell Distribution Width 12.3, Platelet Count 612, Mean Platelet Volume 9.7, Neutrophils (%) (Auto) 63, Lymphocytes (%) (Auto) 23, Monocytes (%) (Auto) 10, Eosinophils (%) (Auto) 4, Basophils (%) (Auto) 1, Neutrophils # (Auto) 4.7, Lymphocytes # (Auto) 1.7, Monocytes # (Auto) 0.7, Eosinophils # (Auto) 0.3, Basophils # (Auto) 0.1 07/29/19 04:45: Sodium Level 138, Potassium Level 4.1, Chloride Level 103, Carbon Dioxide Level 26, Anion Gap 9, Blood Urea Nitrogen 18, Creatinine 0.82, Estimat Glomerular Filtration Rate > 60, BUN/Creatinine Ratio 22, Glucose Level 92, Calcium Level 9.8, Corrected Calcium 10.0, Total Bilirubin 0.6, Aspartate Amino Transf (AST/SGOT) 23, Alanine Aminotransferase (ALT/SGPT) 38, Alkaline Phosphatase 111, Total Protein 7.2, Albumin 3.7 08/01/19 06:10: White Blood Count 11.3, Red Blood Count 3.51, Hemoglobin 10.8, Hematocrit 34, Mean Corpuscular Volume 97, Mean Corpuscular Hemoglobin 31, Mean Corpuscular Hemoglobin Concent 32, Red Cell Distribution Width 12.1, Platelet Count 673, Mean Platelet Volume 9.7 Discharge Home Medications: Active Scripts Active Mirtazapine 15 Mg Tab.rapdis 7.5 Mg PO HS Oxycodone IR (Oxycodone HCl) 5 Mg Tab 10 Mg PO Q4H PRN Oxycontin (Oxycodone HCl) 10 Mg Tab.er.12h 10 Mg PO BID Voltaren (Diclofenac Sodium) 100 Gm Gel..gram. 0 Gm TOP QID Eliquis (Apixaban) 5 Mg Tablet 5 Mg PO BID Reported Metoprolol Succinate 25 Mg Tab.er.24h 25 Mg PO DAILY Vitamin C (Ascorbate Calcium) 500 Mg Tablet 500 Mg PO DAILY Losartan Potassium 100 Mg Tablet 100 Mg PO DAILY Atorvastatin Calcium 20 Mg Tablet 20 Mg PO HS Instructions to patient/family Please see electronic discharge instructions given to patient. Diagnosis/Problems Diagnosis/Problems (1) Status post left knee replacement (2) Left leg DVT (3) Hypertension (4) Postoperative anemia due to acute blood loss (5) Iron deficiency (6) Hyperlipemia Clinical Quality Measures DVT/VTE Risk/Contraindication: Risk Factor Score Per Nursin RFS Level Per Nursing on Admit: 4+=Very High KINJAL SWEENEY DO Aug 03, 2019 11:14 POS
--- NOTE | 2019-08-03 12:04 | Occupational Ther Daily Note ---
OT Current Status-Daily Note Subjective Pt seen in room, up in bed, agreeable to O. Going home this afternoon. No pain mentioned. Appearance Alert, cooperative ADL-Treatment Pt got up to EOB without help and stood without help. Walked SBA, FWW to bathroom. Toilet transfer mod I, no LOB. BSC over toilet, grab bar, FWW. managed clothing and hygiene mod I. Walked to sink and brushed teeth and put on deodorant, mod I, FWW. No LOB observed. Pt walked back to room and retrieved sock herself. Pt educ to get closer to items and to keep walker in front of her, for safety. Verbal agreement. Pt walked to recliner and donned R sock mod I but still needs help with [place] BECKMAN. Pt left up in recliner, setting up her own lunch (pt reported no difficulties with eating), all needs met. Therapy Code Descriptions/Definitions Functional [place] Measure: 0=Not Assessed/NA 4=Minimal Assistance 1=Total Assistance 5=Supervision or Setup 2=Maximal Assistance 6=Modified [place] 3=Moderate Assistance 7=Complete IndependenceSCALE: Activities may be completed with or without assistive devices. 3-Dlauewfghb-tssghzp completes the activity by him/herself with no assistance from a helper. 5-Set-up or Clean-up Assistance-helper sets up or cleans up; patient completes activity. [place] assists only prior to or following the activity. 4-Supervision or Touching Assistance-helper provides verbal cues and/or touching/steadying and/or contact guard assistance as patient completes activ ity. Assistance may be provided throughout the activity or intermittently. 3-Partial/Moderate Assistance-helper does LESS THAN HALF the effort. [place] lifts, holds or supports trunk or limbs, but provides less than half the effort. 2-Substantial/Maximal Assistance-helper does MORE THAN HALF the effort. [place] lifts or holds trunk or limbs and provides more than half the effort. 2-Nfxjmtcfy-psmzva does ALL the effort. Patient does none of the effort to complete the activity. Or, the assistance of 2 or more helpers is required for the patient to complete the activity. If activity was not attempted, code reason: 7-Patient Refused. 9-Not Applicable-not attempted and the patient did not perform the activity before the current illness, exacerbation or injury. 10-Not Attempted due to Environmental Limitations-(lack of equipment, weather restraints, etc.). 88-Not Attempted due to Medical Conditions or Safety Concerns. Eating (QC): 6 Oral Hygiene (QC): 6 (FWW, at sink) Toileting Hygiene (QC): 6 (FWW, BSC, grab bar) Toilet Transfer (QC): 6 (FWW, BSC, grab bar) Education OT Patient Education: Modified ADL techniques, Progress toward Goal/Update tx plan, Purpose of tx/functional activities, Safety issues Teaching Recipient: Patient Teaching Methods: Discussion Response to Teaching: Verbalize Understanding OT Nursing Home Goals Nursing Home Goals Time Frame: Aug 09, 2019 Eating (QC): 6 (met) Oral Hygiene (QC): 6 (met) Toileting Hygiene (QC): 6 (met) Shower/Bathe Self (QC): 6 (not met) Upper Body Dressing (QC): 6 (not met) Lower Body Dressing (QC): 6 (not met) On/Off Footwear (QC): 6 (not met) Toilet transfer 6, mod I met Additional Goals: 1-Demonstrate ADL Tasks, 2-Verbalize Understanding, 3- ImproveStrength/Abdoul 1=Demonstrate adherence to instructed precautions during ADL tasks. 2=Patient will verbalize/demonstrate understanding of assistive devices/modifications for ADL. 3=Patient will improve strength/tolerance for activity to enable patient to perform ADL's. OT Education/Plan Problem List/Assessment Pt demonstrates decreased mobility, ADL functioning, strength, and activity tolerance. Pt to benefit from skilled OT intervention for ADL training, transfers, strengthening, and safety education to increase level of independence and allow safe discharge home. Discharge Recommendations Plan/Recommendations: Discharge/Goals Met (see tx plan for goals met) Treatment Plan/Plan of Care Patient would benefit from OT for education, treatment and training to promote independence in ADL's, mobility, safety and/or upper extremity function for ADL's. Plan of Care: ADL Retraining, Functional Mobility, Group Exercise/Act as Ind, UE Funct Exercise/Act Treatment Duration: Aug 09, 2019 Frequency: At least 5 of 7 days/Wk (IRF) Estimated Hrs Per Day: 1.5 hours per day Agreement: Yes Rehab Potential: Good Time/GCodes Start Time: 11:39 Stop Time: 11:54 Total Time Billed (hr/min): 15 Billed Treatment Time visit, 15 minutes ADL JORGE ARAIZA OT Aug 03, 2019 12:04 POS
--- NOTE | 2019-08-03 12:07 | Physical Therapy Daily Note ---
PT Daily Note-Current Subjective Pt. in bed, agrees to PT. Pt. says "I just really want to go home today." Mental Status Attachments: Polar Pack Transfers SCALE: Activities may be completed with or without assistive devices. 2-Eetvabfvuq-czxjgcc completes the activity by him/herself with no assistance from a helper. 5-Set-up or Clean-up Assistance-helper sets up or cleans up; patient completes activity. [place] assists only prior to or following the activity. 4-Supervision or Touching Assistance-helper provides verbal cues and/or touching/steadying and/or contact guard assistance as patient completes activity. Assistance may be provided throughout the activity or intermittently. 3-Partial/Moderate Assistance-helper does LESS THAN HALF the effort. [place] lifts, holds or supports trunk or limbs, but provides less than half the effort. 2-Substantial/Maximal Assistance-helper does MORE THAN HALF the effort. [place] lifts or holds trunk or limbs and provides more than half the effort. 6-Vplujjdii-lsxjhp does ALL the effort. Patient does none of the effort to complete the activity. Or, the assistance of 2 or more helpers is required for the patient to complete the activity. If activity was not attempted, code reason: 7-Patient Refused. 9-Not Applicable-not attempted and the patient did not perform the activity before the current illness, exacerbation or injury. 10-Not Attempted due to Environmental Limitations-(lack of equipment, weather restraints, etc.). 88-Not Attempted due to Medical Conditions or Safety Concerns. Roll Left & Right (QC): 6 Sit to Lying (QC): 6 Lying to Sitting/Side of Bed(Q: 6 Sit to Stand (QC): 6 Chair/Iru-ls-Vgmok Xfer(QC): 6 Toilet Transfer (QC): 6 Car Transfer (QC): 6 Weight Bearing Right Lower Extremity: Right Weight Bearing/Tolerated Left Lower Extremity: Left Weight Bearing/Tolerated Gait Training Does the Patient Walk?: Yes Distance: 2 x 150 ft Walk 10 feet (QC): 6 Walk 50 ft with 2 Turns(QC): 6 Walk 150 ft (QC): 6 Walking 10ft/uneven surface-QC: 4 Gait Persons Needed: 1 Gait Assistive Device: FWW Wheelchair Training Does the Pt Use a Wheelchair?: No Wheel 50 ft with 2 turns (QC): 7 Wheel 150 ft (QC): 7 Stair Training Stair Training: Handrails/: 2 handrails #of Steps: 12 1 Step (curb) (QC): 6 4 Steps (QC): 4 12 Steps (QC): 4 Stairs: Pattern: Step to Balance Picking up an Object (QC): 6 Exercises Supine Ex: Quad Set, Heel Slides, Short Arc Quads, Straight leg raise Supine Reps: 15 (min A with SLR and HS) Seated Therapy Exercises: Long arc quads, Hamstring Curls Seated Reps: 10 Treatments exercises, gait Assessment Current Status: Good Progress Pt. remains very stiff with knee extension and flexion. She needs several cues during ambulation to shorten L step to complete a reciprocal gait pattern. Pt. also needs cues for stair pattern and requires CGA due to safety concerns. We reviewed with patient and family the knee exercises and use of CPM/polar pack. Pt. is planning discharge to home today. Pt. has met goals for ambulation and transfers. She did not fully met goals for stairs. PT Jail Goals Agent Producer Goals PT Agent Producer Goals Time Frame: Aug 10, 2019 Roll Left & Right (QC): 6 Sit to Lying (QC): 6 Lying-Sitting on Side/Bed(QC): 6 Sit to Stand (QC): 6 Chair/Lfe-bk-Runco Xfer(QC): 6 Toilet Transfer (QC): 6 Car Transfer (QC): 6 Does the Patient Walk: Yes Walk 10 feet (QC): 6 Walk 50ft with 2 Turns (QC): 6 Walk 150 ft (QC): 6 Walking 10ft on Uneven Surface: 6 1 Step (curb) (QC): 6 4 Steps (QC): 6 12 Steps (QC): 6 Picking up an Object (QC): 6 Does the Pt use WC or Scooter?: No Type: N/A Type: N/A PT Plan Treatment/Plan Treatment Plan: Discontinue PT Treatment Plan: Bed Mobility, Concurrent Therapy, Education, Functional Activity Abdoul, Functional Strength, Group Therapy, Gait, Safety, Therapeutic Exercise, Transfers Treatment Duration: Aug 10, 2019 Frequency: At least 5 of 7 days/Wk (IRF) Estimated Hrs Per Day: 1.5 hours per day Patient and/or Family Agrees t: Yes Discharge Recommendations Therapy Discharge Recommendati: Post Acute PT Time/GCodes Time In: 1045 Time Out: 1135 Total Billed Treatment Time: 50 Total Billed Treatment 1, Ex 30', GT 15', (FA 5') VITA DIA PT Aug 03, 2019 12:07 POS
[2019-08-03 15:05] VITALS: BP 117/77
--- NOTE | 2019-08-05 10:59 | Therapy Team Discharge Summary ---
Therapy Discharge Summary Discharge Recommendations Date of Discharge Aug 03, 2019 at 14:30 Physical Therapy This patient was admitted to acute rehab post acute hospital stay due to elective left TKR that resulted in a DVT. Prior to surgery, pt was indep with all mobility and self care. Upon admission to ARU, she was SBA with transfers and ambulated 50 ft with CGA. Her gait pattern was significantly impaired and she presented with limited functional ROM and strength. Treatment focused on functional strength and ROM as well as transfer and gait training. At discha rge, she was mod indep with gait and transfers; she does need slight assist on stairs. Her ROM and gait continue to remain impaired, recommend follow up PT on an outpt or [facility] level. Goals not fully met, but pt did make functional progress and has potential to continue to improve; Her mobiltiy is such that she can be home with family support. DC PT from ARU> Occupational Therapy Decreased Activ Tolerance, Decreased UE Strength, Impaired Funct Balance, Impaired I ADL's, Impaired Self-Care Skills PT Face Man Goals Senior Care Goals PT Senior Care Goals Time Frame: Aug 10, 2019 Roll Left to Right (QC): 6 (met) Sit to Lying (QC): 6 (met) Lying-Sitting on Side/Bed(QC): 6 (met) Sit to Stand (QC): 6 (met) Chair/Vul-rd-Tozgt Xfer(QC): 6 (met) Car Transfer (QC): 6 (met) Does the Patient Walk: Yes Distance: 200' Walk 10 feet (QC): 6 (met) Walk 10ft-Uneven Surface(QC): 6 (unmet) Walk 50ft with 2 Turns (QC): 6 (met) Walk 150 ft (QC): 6 (met) Gait Assistive Device: FWW Does the Pt use WC or Scooter?: No # of Steps: 12 1 Step (curb) (QC): 6 (met) 4 Steps (QC): 6 (unmet) 12 Steps (QC): 6 (unmet) Picking up an Object (QC): 6 Goals not fully met but pt able to discharge home with family with follow up [facility] PT. OT Face Man Goals Senior Care Goals Time Frame: Aug 09, 2019 Eating (QC): 6 (met) Oral Hygiene (QC): 6 (met) Shower/Bathe Self (QC): 6 (not met) Upper Body Dressing (QC): 6 (not met) Lower Body Dressing (QC): 6 (not met) On/Off Footwear (QC): 6 (not met) Toileting Hygiene (QC): 6 (met) Toilet/Commode Transfer (QC): 6 Toilet transfer 6, mod I met Additional Goals: 1-Demonstrate ADL Tasks, 2-Verbalize Understanding, 3- ImproveStrength/Abdoul 1=Demonstrate adherence to instructed precautions during ADL tasks. 2=Patient will verbalize/demonstrate understanding of assistive devices/modifications for ADL. 3=Patient will improve strength/tolerance for activity to enable patient to perform ADL's. BRYAN PLATA PT Aug 05, 2019 10:59 POS
--- NOTE | 2019-08-05 13:27 | Therapy Team Discharge Summary ---
Therapy Discharge Summary Discharge Recommendations Date of Discharge Aug 03, 2019 at 14:30 Occupational Therapy During pt's POC, OT worked on increasing UE strength, functional endurance, f unctional mobility, ADL modifications, and increasing self care skills in order to increase independence in ADLs and functional activities. The main barrier to pt's progress is the pain in her LLE. Pt is currently independent with eating, oral hygiene, toilet hygiene, SBA for showering, upper & lower body dressing, and requires partial assist with footwear. AE recommendations: long handled shoe horn. OT recommends pt should be safe to d/c home with family support with home health OT services. Decreased Activ Tolerance, Decreased UE Strength, Impaired Funct Balance, Impaired I ADL's, Impaired Self-Care Skills PT Testing Machine Operator Goals Testing Machine Operator Goals PT Care Home Goals Time Frame: Aug 10, 2019 Roll Left to Right (QC): 6 (met) Sit to Lying (QC): 6 (met) Lying-Sitting on Side/Bed(QC): 6 (met) Sit to Stand (QC): 6 (met) Chair/Xtg-pg-Above Xfer(QC): 6 (met) Car Transfer (QC): 6 (met) Does the Patient Walk: Yes Distance: 200' Walk 10 feet (QC): 6 (met) Walk 10ft-Uneven Surface(QC): 6 (unmet) Walk 50ft with 2 Turns (QC): 6 (met) Walk 150 ft (QC): 6 (met) Gait Assistive Device: FWW Does the Pt use WC or Scooter?: No # of Steps: 12 1 Step (curb) (QC): 6 (met) 4 Steps (QC): 6 (unmet) 12 Steps (QC): 6 (unmet) Picking up an Object (QC): 6 OT Care Home Goals Care Home Goals Time Frame: Aug 09, 2019 Eating (QC): 6 (met) Oral Hygiene (QC): 6 (met) Shower/Bathe Self (QC): 6 (not met) Upper Body Dressing (QC): 6 (not met) Lower Body Dressing (QC): 6 (not met) On/Off Footwear (QC): 6 (not met) Toileting Hygiene (QC): 6 (met) Toilet/Commode Transfer (QC): 6 (met) Additional Goals: 1-Demonstrate ADL Tasks, 2-Verbalize Understanding, 3- ImproveStrength/Abdoul 1=Demonstrate adherence to instructed precautions during ADL tasks. 2=Patient will verbalize/demonstrate understanding of assistive devices/modifications for ADL. 3=Patient will improve strength/tolerance for activity to enable patient to perform ADL's. JIMBO WORLEY OT Aug 05, 2019 13:27 POS
--- NOTE | 2019-08-06 08:43 | Physician Query Clarification ---
PQ-Intro New Diagnosis Admission/Discharge Admission Date: Jul 26, 2019 at 12:50 Discharge Date: Aug 03, 2019 at 14:30 The medical record reflects the following clinical scenario: History/Risk Factors: s/p Lt TKR, Lt. DVT Clinical Findings: joint pain, edema Treatment: Lt. TKR Question: What condition best reflects the above clinical scenario? (The condition responsible for the Lt. TKR) Please document a response in the Progress Noter or Discharge Summary. 1. Osteoarthritis Lt. knee 2. Lt knee pain condition not further specified 3. Other, with explanation of the clinical findings. 4. Clinically undetermined, no explanation for the clinical findings. PHYSICIAN RESPONSE What condition reflects above: 1 Please remember a lack of response to the above will prompt a phone page by CDI/Coding staff. In responding to this query, please exercise your independent professional judgment. The purpose of this communication is to more accurately reflect the complexity of your patients condition. The fact that a question is asked does not imply that any particular answer is desired or expected. Thank you for your timely response to this clarification. Requestors name: Killian THIS PHYSICIAN QUERY FORM IS A PERMANENT PART OF THE MEDICAL RECORD KILLIAN NOLEN Aug 06, 2019 08:43 KINJAL MUNROE DO Aug 06, 2019 10:59 POS
== END 2019-08-03 14:30 | disposition home health service (06) | DRG 560 ==
PROVIDERS: ADMIT Internal Medicine; ATTEND Internal Medicine
DX: Z47.1 Aftercare following joint replacement surgery (principal); Z96.652 Presence of left artificial knee joint; I82.402 Acute embolism and thrombosis of unspecified deep veins of left lower extremity; I10 Essential (primary) hypertension; E78.5 Hyperlipidemia, unspecified; K59.09 Other constipation; D62 Acute posthemorrhagic anemia; D50.9 Iron deficiency anemia, unspecified
CPT/HCPCS: 36415; 73560; 80053; 85025; 85027